=== PATIENT | female | born 1945 | race African-American/Black ===

== ENCOUNTER 2016-09-08 06:45 | Inpatient (IN) | payer MEDICARE, MEDICAID ==
[~2016-09-08] VITALS: Ht 152.4 cm; Wt 62.8 kg
[~2016-09-08 06:45] MED LIST: LEVO500T89 PO; LOSA50TA20 PO; MONT10TA24 PO; P20 PO; POTA20TA82 PO; THEO200T37 PO
[2016-09-08] MEDS ORDERED: ALBUTEROL (0.083%) 2.5MG/3ML NEB HHN STA ×2 (07:03→07:35)
[2016-09-08] MEDS ORDERED: METHYLPREDNISOLONE SOD SUCC 125 MG/2 ML VIAL IV STA (07:03)
[2016-09-08] MEDS ORDERED: IPRATROPIUM BROMIDE (0.02%) 0.5MG/2.5ML NEB HHN STA ×2 (07:03→07:35)
[2016-09-08] MEDS ORDERED: ACETAMINOPHEN 325MG TABLET PO ONE (07:15)
[2016-09-08] MEDS ORDERED: MAGNESIUM 2 G PREMIX 50 ML IV ONE (07:15)
[2016-09-08 07:59] LABS: BASOPHILS % 0.6 % (0.0-2.0); EOSINOPHILS % 0.3 % (0.0-5.0); HEMATOCRIT. 39.4 % (36.0-48.0); HEMOGLOBIN. 13.1 g/dL (12.0-16.0); LYMPHOCYTES % 11.5 % (20.0-50.0); MEAN CORPUSCULAR HEMOGLOBIN 29.4 pg (28.0-32.0); MEAN CORPUSCULAR VOLUME 88.6 fL (81.0-99.0); MONOCYTES % 4.8 % (2.0-8.0); NEUTROPHILS % 82.8 % (40.0-76.0); PLATELET 200 x1000/uL (130-400); RED BLOOD CELL COUNT 4.45 mill/uL (4.2-5.4); RED CELL DISTRIBUTION WIDTH 14.9 % (11.6-14.6)
[2016-09-08 08:04] LABS: INR 1.1; PROTHROMBIN TIME 10.9 sec
[2016-09-08 08:11] LABS: CARBON DIOXIDE 25 mEq/L (21-32); CHLORIDE 96 mEq/L (98-107)
[2016-09-08 08:46] LABS: CLARITY URINE CLOUDY (CLEAR); COLOR URINE YELLOW (YELLOW); GLUCOSE URINE 3+ (NEGATIVE); KETONES URINE 2+ (NEGATIVE); LEUKOCYTE ESTERASE URINE 1+ (NEGATIVE); NITRITE URINE POSITIVE (NEGATIVE); OCCULT BLOOD URINE 2+ (NEGATIVE); PH URINE 5.5 (4.5-8.0); PROTEIN URINE 2+ (NEGATIVE)
[2016-09-08] MEDS ORDERED: LEVOFLOXACIN 750MG PREMIX 150 ML IV ONE (09:00)
[2016-09-08 10:00] VITALS: BP 119/72
[2016-09-08] MEDS ORDERED: ACETAMINOPHEN 325MG TABLET PO PRN (10:45)
[2016-09-08 10:56] LABS: BG BASE EXCESS -2.5 mmol/L (-2.0-2.0); BG CARBOXYHEMOGLOBIN 0.5 % (0.5-1.5); BG DEOXYHEMOGLOBIN 4.2 % (0.0-5.0); BG FRACTION INSPIRED OXYGEN 28; BG HCO3 ACT 20.4 mmol/L (22.0-26.0); BG METHEMOGLOBIN 0.5 % (0.0-1.5); BG OXYGEN SATURATION 95.8 % (92.0-98.5); BG OXYHEMOGLOBIN 94.8 % (94.0-97.0); BG PCO2 30.3 mmHg (35.0-45.0); BG PH 7.447 (7.350-7.450); BG PO2 78.8 mmHg (75.0-100.0); BG SAMPLE SITE RIGHT BRACHIAL; BG TOTAL HEMOGLOBIN 13.8 g/dL (12.0-18.0); BG VENT MODE NASAL CANNULA
[2016-09-08] MEDS ORDERED: ALBUTEROL (0.083%) 2.5MG/3ML NEB HHN PRN (11:15)
[2016-09-08 12:00] VITALS: BP 109/62
[2016-09-08] MEDS ORDERED: ALBUTEROL (0.5%) 2.5MG/0.5ML NEB HHN SCH (12:00)
[2016-09-08] MEDS ORDERED: FOLIC ACID 1 MG, THIAMINE HCL 100 MG, MVI, ADULT NO.1 10 ML in DEXTROSE 5% WATER 1,000 ML IV ONE ×4 (12:00)
[2016-09-08] MEDS ORDERED: LEVOFLOXACIN 500MG PREMIX 100 ML IV SCH (12:00)
[2016-09-08] MEDS: IPRATROPIUM/ALBUTEROL 0.5-3(2.5)MG/3ML NEB HHN SCH ×3 (12:47→20:33)
[2016-09-08] MEDS: GABAPENTIN 400MG CAPSULE PO SCH ×2 (13:11→23:12)
[2016-09-08] MEDS: METFORMIN HCL 500MG TABLET PO SCH ×2 (13:12→18:47)
[2016-09-08] MEDS: CLOPIDOGREL 75MG TABLET PO SCH (13:12)
[2016-09-08] MEDS: METHYLPREDNISOLONE SOD SUCC 40 MG/ML VIAL IV SCH ×2 (13:12→21:16)
[2016-09-08] MEDS: NYSTATIN 100,000 UNITS/ML 5ML UDC SSW SCH ×3 (13:13→21:16)
[2016-09-08] MEDS ORDERED: DEXTROSE 50% WATER 50ML SYRINGE IV PRN (14:25)
[2016-09-08] MEDS: BLOOD SUGAR DIAGNOSTIC STRIP TEST SCH ×3 (15:02→21:00)
[2016-09-08] MEDS: INSULIN LISPRO 100 UNITS/ML SUBCUT SCH ×3 (15:11→21:00)
[2016-09-08] MEDS: PRIMIDONE 50MG TABLET PO SCH ×2 (15:12→21:16)
[2016-09-08 16:00] VITALS: BP 129/88
[2016-09-08 16:30] VITALS: BP 119/72
[2016-09-08] MEDS: MONTELUKAST SODIUM 10MG TABLET PO SCH (18:47)
[2016-09-08 20:00] VITALS: BP 118/78
[2016-09-08] MEDS: ATORVASTATIN CALCIUM 20MG TABLET PO SCH (21:16)
[2016-09-09] VITALS (7 sets, daily range): BP systolic 117–154; BP diastolic 64–81
[2016-09-09] MEDS: IPRATROPIUM/ALBUTEROL 0.5-3(2.5)MG/3ML NEB HHN SCH ×7 (00:18→23:20)
[2016-09-09] MEDS: METHYLPREDNISOLONE SOD SUCC 40 MG/ML VIAL IV SCH ×3 (06:04→21:06)
[2016-09-09] MEDS: GABAPENTIN 400MG CAPSULE PO SCH ×3 (06:04→21:06)
[2016-09-09] MEDS: BLOOD SUGAR DIAGNOSTIC STRIP TEST SCH ×4 (08:07→21:00)
[2016-09-09] MEDS: PRIMIDONE 50MG TABLET PO SCH ×2 (08:41→21:06)
[2016-09-09] MEDS: NYSTATIN 100,000 UNITS/ML 5ML UDC SSW SCH ×4 (08:41→21:06)
[2016-09-09] MEDS: CLOPIDOGREL 75MG TABLET PO SCH (08:41)
[2016-09-09] MEDS: METFORMIN HCL 500MG TABLET PO SCH ×2 (08:41→18:19)
[2016-09-09] MEDS: INSULIN LISPRO 100 UNITS/ML SUBCUT SCH ×4 (08:42→21:00)
[2016-09-09] MEDS: HYDROCODONE/ACETAMINOPHEN 5/325MG TABLET PO PRN ×2 (13:56→23:27)
[2016-09-09] MEDS: MONTELUKAST SODIUM 10MG TABLET PO SCH (18:19)
[2016-09-09] MEDS: ATORVASTATIN CALCIUM 20MG TABLET PO SCH (21:06)
[2016-09-10] MEDS: IPRATROPIUM/ALBUTEROL 0.5-3(2.5)MG/3ML NEB HHN SCH ×5 (03:19→21:05)
[2016-09-10 04:00] VITALS: BP 115/57
[2016-09-10] MEDS: METHYLPREDNISOLONE SOD SUCC 40 MG/ML VIAL IV SCH ×3 (05:46→20:39)
[2016-09-10] MEDS: GABAPENTIN 400MG CAPSULE PO SCH ×3 (05:46→20:39)
[2016-09-10] MEDS: BLOOD SUGAR DIAGNOSTIC STRIP TEST SCH ×4 (07:40→20:39)
[2016-09-10 08:00] VITALS: BP 146/82
[2016-09-10] MEDS: INSULIN LISPRO 100 UNITS/ML SUBCUT SCH ×4 (08:53→20:47)
[2016-09-10] MEDS: NYSTATIN 100,000 UNITS/ML 5ML UDC SSW SCH ×4 (08:53→20:38)
[2016-09-10] MEDS: PRIMIDONE 50MG TABLET PO SCH ×2 (08:54→20:39)
[2016-09-10] MEDS: METFORMIN HCL 500MG TABLET PO SCH ×2 (08:54→17:11)
[2016-09-10] MEDS: CLOPIDOGREL 75MG TABLET PO SCH (08:54)
[2016-09-10] MEDS: HYDROCODONE/ACETAMINOPHEN 5/325MG TABLET PO PRN ×2 (11:05→22:45)
[2016-09-10 11:40] VITALS: BP 123/72
[2016-09-10 16:00] VITALS: BP 130/73
[2016-09-10] MEDS: MONTELUKAST SODIUM 10MG TABLET PO SCH (17:11)
[2016-09-10 20:05] VITALS: BP 132/71
[2016-09-10] MEDS: ATORVASTATIN CALCIUM 20MG TABLET PO SCH (20:39)
[2016-09-11 00:06] VITALS: BP 124/77
[2016-09-11] MEDS: IPRATROPIUM/ALBUTEROL 0.5-3(2.5)MG/3ML NEB HHN SCH ×6 (00:37→21:48)
[2016-09-11 04:00] VITALS: BP 144/74
[2016-09-11] MEDS: METHYLPREDNISOLONE SOD SUCC 40 MG/ML VIAL IV SCH ×3 (05:45→21:40)
[2016-09-11] MEDS: GABAPENTIN 400MG CAPSULE PO SCH ×3 (05:46→21:40)
[2016-09-11] MEDS: BLOOD SUGAR DIAGNOSTIC STRIP TEST SCH ×4 (07:23→21:35)
[2016-09-11 08:00] VITALS: BP 109/63
[2016-09-11] MEDS: NYSTATIN 100,000 UNITS/ML 5ML UDC SSW SCH ×4 (08:49→21:40)
[2016-09-11] MEDS: INSULIN LISPRO 100 UNITS/ML SUBCUT SCH ×4 (08:51→21:00)
[2016-09-11] MEDS: CLOPIDOGREL 75MG TABLET PO SCH (08:52)
[2016-09-11] MEDS: PRIMIDONE 50MG TABLET PO SCH ×2 (08:52→21:40)
[2016-09-11] MEDS: METFORMIN HCL 500MG TABLET PO SCH ×2 (08:52→18:24)
[2016-09-11] MEDS: HYDROCODONE/ACETAMINOPHEN 5/325MG TABLET PO PRN ×2 (08:59→18:25)
[2016-09-11 12:00] VITALS: BP 109/68
[2016-09-11 16:00] VITALS: BP 108/60
[2016-09-11] MEDS ORDERED: LEVOFLOXACIN 500MG PREMIX 100 ML IV SCH (16:00)
[2016-09-11] MEDS: MONTELUKAST SODIUM 10MG TABLET PO SCH (16:36)
[2016-09-11 20:00] VITALS: BP 122/74
[2016-09-11] MEDS: ATORVASTATIN CALCIUM 20MG TABLET PO SCH (21:40)
[2016-09-12] VITALS: BP 116/64
[2016-09-12] MEDS: IPRATROPIUM/ALBUTEROL 0.5-3(2.5)MG/3ML NEB HHN SCH ×3 (01:41→10:03)
[2016-09-12 04:00] VITALS: BP_SYST 122; BP_SYST 148; BP_DIAS 74; BP_DIAS 78
[2016-09-12] MEDS: METHYLPREDNISOLONE SOD SUCC 40 MG/ML VIAL IV SCH (06:40)
[2016-09-12] MEDS: GABAPENTIN 400MG CAPSULE PO SCH (06:41)
[2016-09-12] MEDS: BLOOD SUGAR DIAGNOSTIC STRIP TEST SCH (07:22)
[2016-09-12 07:57] VITALS: BP 133/79
[2016-09-12] MEDS: METFORMIN HCL 500MG TABLET PO SCH (08:38)
[2016-09-12] MEDS: CLOPIDOGREL 75MG TABLET PO SCH (08:38)
[2016-09-12] MEDS: NYSTATIN 100,000 UNITS/ML 5ML UDC SSW SCH (08:38)
[2016-09-12] MEDS: PRIMIDONE 50MG TABLET PO SCH (08:39)
[2016-09-12] MEDS: HYDROCODONE/ACETAMINOPHEN 5/325MG TABLET PO PRN (08:39)
[2016-09-12] MEDS: INSULIN LISPRO 100 UNITS/ML SUBCUT SCH (08:40)
[2016-09-12 10:21] VITALS: BP 133/79
[2016-09-12] MEDS ORDERED: LEVOFLOXACIN 250MG PREMIX 50 ML IV SCH (11:00)
[2016-09-12 12:00] VITALS: BP 121/64
== END 2016-09-12 12:40 | disposition home or self-care (01) | DRG 871 ==
LOC: ER 07:42 → 7WST 09:00 → EDBEDREQSVC 09:06 → EDBEDREQ 09:06 → ENRESERV 09:16
PROVIDERS: ADMIT Specialist; ATTEND Specialist
PROC: 5A09457 Assistance with Respiratory Ventilation, 24-96 Consecutive Hours, Continuous Positive Airway Pressure (ICD-10-PCS; principal; 2016-09-09)
DX: A41.59 Other Gram-negative sepsis (principal); J96.20 Acute and chronic respiratory failure, unspecified whether with hypoxia or hypercapnia; J44.1 Chronic obstructive pulmonary disease with (acute) exacerbation; N39.0 Urinary tract infection, site not specified; J45.901 Unspecified asthma with (acute) exacerbation; E11.9 Type 2 diabetes mellitus without complications; E78.5 Hyperlipidemia, unspecified; M54.5 Low back pain; G89.29 Other chronic pain; G47.33 Obstructive sleep apnea (adult) (pediatric); M13.0 Polyarthritis, unspecified; I10 Essential (primary) hypertension; G25.0 Essential tremor; R33.9 Retention of urine, unspecified; Z88.6 Allergy status to analgesic agent; Z88.1 Allergy status to other antibiotic agents; Z88.0 Allergy status to penicillin; Z88.2 Allergy status to sulfonamides; Z88.8 Allergy status to other drugs, medicaments and biological substances; Z87.891 Personal history of nicotine dependence; Z86.73 Personal history of transient ischemic attack (TIA), and cerebral infarction without residual deficits
CPT/HCPCS: 36415; 36600; 71010; 80053; 81001; 82375; 82805; 82962; 83605; 85025; 85610; 87040; 87077; 87086; 87186; 93005; 94640; 94660; 96365; 96375; 99285; J1815; J1956; J2920; J2930; J3411; J3475; J3490; J7050; J7070; J7611; J7620

== ENCOUNTER 2017-07-09 11:11 | Emergency (ER) | payer MEDICARE, MEDICAID ==
[~2017-07-09] VITALS: Ht 152.4 cm; Wt 67.0 kg
[~2017-07-09 11:11] MED LIST changes: +THEO200T17 PO; -THEO200T37 PO
[2017-07-09 12:00] LABS: BASOPHILS % 0.5 % (0.0-2.0); EOSINOPHILS % 0.1 % (0.0-5.0); HEMATOCRIT. 40.8 % (36.0-48.0); HEMOGLOBIN. 13.7 g/dL (12.0-16.0); LYMPHOCYTES % 9.8 % (20.0-50.0); MEAN CORPUSCULAR HEMOGLOBIN 29.5 pg (28.0-32.0); MEAN CORPUSCULAR VOLUME 88.2 fL (81.0-99.0); MEAN PLATELET VOLUME 8.7 fl (7.4-10.4); MONOCYTES % 5.4 % (2.0-8.0); NEUTROPHILS % 84.2 % (40.0-76.0); PLATELET 264 x1000/uL (130-400); RED BLOOD CELL COUNT 4.62 mill/uL (4.2-5.4); RED CELL DISTRIBUTION WIDTH 15.2 % (11.6-14.6)
[2017-07-09 12:06] LABS: CHLORIDE 107 mEq/L (98-107)
[2017-07-09 12:08] LABS: PARTIAL THROMBOPLASTIN TIME 22.6 sec (23.4-31.0); PROTHROMBIN TIME 10.7 sec (9.4-11.6)
[2017-07-09] MEDS ORDERED: IPRATROPIUM BROMIDE (0.02%) 0.5MG/2.5ML NEB HHN STA (12:21)
[2017-07-09] MEDS: ALBUTEROL (0.083%) 2.5MG/3ML NEB HHN SCH ×3 (12:40→14:13)
[2017-07-09 15:58] VITALS: BP 145/65
== END 2017-07-09 16:23 | disposition home or self-care (01) ==
LOC: ER 15:50
DX: J44.1 Chronic obstructive pulmonary disease with (acute) exacerbation (principal); R07.89 Other chest pain; D72.829 Elevated white blood cell count, unspecified; I10 Essential (primary) hypertension; M19.90 Unspecified osteoarthritis, unspecified site; E11.9 Type 2 diabetes mellitus without complications; Z88.0 Allergy status to penicillin; Z88.2 Allergy status to sulfonamides; Z88.6 Allergy status to analgesic agent
CPT/HCPCS: 36415; 71045; 80053; 83690; 83880; 84484; 85025; 85610; 85730; 93005; 94640; 99285; J7611

== ENCOUNTER 2018-03-11 12:11 | Inpatient (IN) | payer MEDICARE, MEDICAID ==
[~2018-03-11] VITALS: Ht 160 cm; Wt 68.0 kg
[2018-03-11] MEDS ORDERED: ALBUTEROL (0.083%) 2.5MG/3ML NEB HHN ONE ×2 (13:00→15:30)
[2018-03-11] MEDS ORDERED: IPRATROPIUM BROMIDE (0.02%) 0.5MG/2.5ML NEB HHN ONE (13:00)
[2018-03-11] MEDS ORDERED: METHYLPREDNISOLONE SOD SUCC 125 MG/2 ML VIAL IV ONE (13:00)
[2018-03-11 13:44] LABS: BASOPHILS % 0.5 % (0.0-2.0); EOSINOPHILS % 0.1 % (0.0-5.0); HEMATOCRIT. 40.3 % (36.0-48.0); HEMOGLOBIN. 13.3 g/dL (12.0-16.0); LYMPHOCYTES % 14.2 % (20.0-50.0); MEAN CORPUSCULAR HEMOGLOBIN 30.1 pg (28.0-32.0); MEAN CORPUSCULAR VOLUME 91.2 fL (81.0-99.0); MEAN PLATELET VOLUME 8.8 fl (7.4-10.4); MONOCYTES % 2.7 % (2.0-8.0); NEUTROPHILS % 82.5 % (40.0-76.0); PLATELET 289 x1000/uL (130-400); RED BLOOD CELL COUNT 4.42 mill/uL (4.2-5.4); RED CELL DISTRIBUTION WIDTH 15.6 % (11.6-14.6)
[2018-03-11 13:50] LABS: CHLORIDE 106 mEq/L (98-107)
[2018-03-11] MEDS ORDERED: ALBUTEROL (0.5%) 2.5MG/0.5ML NEB HHN PRN ×2 (20:45→21:30)
[2018-03-11] MEDS ORDERED: AZITHROMYCIN 500 MG in DEXT 5% WATER 250 ML IV SCH (21:15)
[2018-03-11] MEDS ORDERED: DEXTROSE 50% WATER 50ML SYRINGE IV PRN (22:45)
[2018-03-11 23:36] VITALS: BP 151/54
[2018-03-12] VITALS (7 sets, daily range): BP systolic 121–165; BP diastolic 54–76
[2018-03-12] MEDS: ALBUTEROL (0.083%) 2.5MG/3ML NEB HHN SCH ×6 (04:35→23:30)
[2018-03-12] MEDS: METHYLPREDNISOLONE SOD SUCC 40 MG/ML VIAL IV SCH ×3 (04:58→21:55)
[2018-03-12] MEDS: AZITHROMYCIN 500 MG in DEXT 5% WATER 250 ML IV SCH (04:58)
[2018-03-12] MEDS: BLOOD SUGAR DIAGNOSTIC STRIP TEST SCH ×4 (06:01→21:55)
[2018-03-12] MEDS: ONDANSETRON HCL 4MG/2ML INJ IV PRN ×2 (06:43→13:26)
[2018-03-12] MEDS: HYDROCODONE/ACETAMINOPHEN 5/325MG TABLET PO PRN ×3 (06:44→21:55)
[2018-03-12] MEDS: INSULIN LISPRO 100 UNITS/ML SUBCUT SCH ×4 (08:10→21:00)
[2018-03-12] MEDS: BUDESONIDE 0.5MG/2ML NEB HHN SCH ×2 (08:41→20:38)
[2018-03-12] MEDS: CLOPIDOGREL 75MG TABLET PO SCH (08:50)
[2018-03-12] MEDS: METFORMIN HCL 500MG TABLET PO SCH ×2 (08:51→18:26)
[2018-03-12] MEDS: ENOXAPARIN 40MG/0.4ML SYR SUBCUT SCH (08:51)
[2018-03-12] MEDS ORDERED: FLUTICASONE FUROATE 200 1 INH/CAP ORI SCH (09:00)
[2018-03-12] MEDS: BENAZEPRIL 10MG TABLET PO SCH (11:00)
[2018-03-12] MEDS: ATORVASTATIN CALCIUM 10MG TABLET PO SCH (21:55)
[2018-03-13 00:09] VITALS: BP 112/47
[2018-03-13] MEDS: ALBUTEROL (0.083%) 2.5MG/3ML NEB HHN SCH ×5 (03:53→21:19)
[2018-03-13 04:00] VITALS: BP 134/77
[2018-03-13] MEDS: METHYLPREDNISOLONE SOD SUCC 40 MG/ML VIAL IV SCH ×3 (05:04→21:30)
[2018-03-13] MEDS: AZITHROMYCIN 500 MG in DEXT 5% WATER 250 ML IV SCH (05:04)
[2018-03-13] MEDS: BLOOD SUGAR DIAGNOSTIC STRIP TEST SCH ×4 (05:13→21:29)
[2018-03-13 08:00] VITALS: BP 143/51
[2018-03-13] MEDS: INSULIN LISPRO 100 UNITS/ML SUBCUT SCH ×4 (08:10→21:30)
[2018-03-13] MEDS: BUDESONIDE 0.5MG/2ML NEB HHN SCH ×2 (08:32→21:18)
[2018-03-13] MEDS: CLOPIDOGREL 75MG TABLET PO SCH (08:41)
[2018-03-13] MEDS: METFORMIN HCL 500MG TABLET PO SCH ×2 (08:41→17:40)
[2018-03-13] MEDS: ENOXAPARIN 40MG/0.4ML SYR SUBCUT SCH (08:41)
[2018-03-13] MEDS: BENAZEPRIL 10MG TABLET PO SCH (08:41)
[2018-03-13] MEDS: HYDROCODONE/ACETAMINOPHEN 5/325MG TABLET PO PRN ×2 (11:32→18:58)
[2018-03-13 12:00] VITALS: BP 126/52
[2018-03-13 16:00] VITALS: BP 109/56
[2018-03-13 20:00] VITALS: BP 125/37
[2018-03-13 20:47] LABS: BASOPHILS % 0.4 % (0.0-2.0); HEMOGLOBIN. 13.2 g/dL (12.0-16.0); LYMPHOCYTES % 12.2 % (20.0-50.0); MEAN CORPUSCULAR HEMOGLOBIN 29.2 pg (28.0-32.0); MEAN CORPUSCULAR VOLUME 90.7 fL (81.0-99.0); MEAN PLATELET VOLUME 8.7 fl (7.4-10.4); MONOCYTES % 5.4 % (2.0-8.0); PLATELET 306 x1000/uL (130-400); RED BLOOD CELL COUNT 4.52 mill/uL (4.2-5.4); RED CELL DISTRIBUTION WIDTH 15.2 % (11.6-14.6)
[2018-03-13 20:48] LABS: CHLORIDE 104 mEq/L (98-107)
[2018-03-13] MEDS: ATORVASTATIN CALCIUM 10MG TABLET PO SCH (21:29)
[2018-03-14] VITALS: BP 118/49
[2018-03-14] MEDS: ALBUTEROL (0.083%) 2.5MG/3ML NEB HHN SCH ×6 (00:48→20:55)
[2018-03-14] MEDS: HYDROCODONE/ACETAMINOPHEN 5/325MG TABLET PO PRN ×3 (01:13→20:15)
[2018-03-14 04:00] VITALS: BP 139/50
[2018-03-14] MEDS: METHYLPREDNISOLONE SOD SUCC 40 MG/ML VIAL IV SCH ×3 (05:59→21:28)
[2018-03-14] MEDS: AZITHROMYCIN 500 MG in DEXT 5% WATER 250 ML IV SCH (05:59)
[2018-03-14] MEDS: BLOOD SUGAR DIAGNOSTIC STRIP TEST SCH ×4 (07:40→20:16)
[2018-03-14 08:00] VITALS: BP 153/73
[2018-03-14] MEDS: INSULIN LISPRO 100 UNITS/ML SUBCUT SCH ×4 (08:10→20:16)
[2018-03-14] MEDS: METFORMIN HCL 500MG TABLET PO SCH ×2 (09:27→20:14)
[2018-03-14] MEDS: CLOPIDOGREL 75MG TABLET PO SCH (09:27)
[2018-03-14] MEDS: BENAZEPRIL 10MG TABLET PO SCH (09:28)
[2018-03-14] MEDS: ENOXAPARIN 40MG/0.4ML SYR SUBCUT SCH (09:28)
[2018-03-14] MEDS: BUDESONIDE 0.5MG/2ML NEB HHN SCH ×2 (09:30→17:10)
[2018-03-14 11:44] LABS: BG BASE EXCESS 2.1 mmol/L (-2.0-2.0); BG FRACTION INSPIRED OXYGEN 21; BG HCO3 ACT 26.3 mmol/L (22.0-26.0); BG METHEMOGLOBIN 0.3 % (0.0-1.5); BG OXYGEN SATURATION 91.9 % (92.0-98.5); BG OXYHEMOGLOBIN 90.7 % (94.0-97.0); BG PCO2 39.7 mmHg (35.0-45.0); BG PH 7.439 (7.350-7.450); BG PO2 61.8 mmHg (75.0-100.0); BG SAMPLE SITE RIGHT BRACHIAL; BG TOTAL HEMOGLOBIN 14.6 g/dL (12.0-18.0); BG VENT MODE ROOM AIR
[2018-03-14 12:00] VITALS: BP 138/79
[2018-03-14 12:26] LABS: BG SAMPLE SITE RIGHT RADIAL
[2018-03-14 12:27] LABS: BG VENT MODE NASAL CANNULA
[2018-03-14 12:28] LABS: BG FRACTION INSPIRED OXYGEN 28
[2018-03-14 12:34] LABS: BG PCO2 40.8 mmHg (35.0-45.0); BG PO2 98.7 mmHg (75.0-100.0)
[2018-03-14 12:35] LABS: BG BASE EXCESS 0.6 mmol/L (-2.0-2.0); BG CARBOXYHEMOGLOBIN 0.4 % (0.5-1.5); BG HCO3 ACT 25.3 mmol/L (22.0-26.0); BG METHEMOGLOBIN 0.4 % (0.0-1.5); BG OXYGEN SATURATION 97.3 % (92.0-98.5); BG OXYHEMOGLOBIN 96.5 % (94.0-97.0)
[2018-03-14 12:36] LABS: BG DEOXYHEMOGLOBIN 2.7 % (0.0-5.0)
[2018-03-14 16:00] VITALS: BP 136/56
[2018-03-14 20:00] VITALS: BP 130/60
[2018-03-14] MEDS: ATORVASTATIN CALCIUM 10MG TABLET PO SCH (20:14)
[2018-03-14] MEDS: THEOPHYLLINE ANHYDROUS 80 MG/15 ML 120ML PO SCH (21:28)
[2018-03-15] VITALS: BP 141/70
[2018-03-15] MEDS: ACETYLCYSTEINE 100MG/ML 10% VIAL 4ML INH SCH ×3 (00:55→16:01)
[2018-03-15] MEDS: ALBUTEROL (0.083%) 2.5MG/3ML NEB HHN SCH ×6 (00:55→21:23)
[2018-03-15 04:00] VITALS: BP 151/72
[2018-03-15] MEDS: THEOPHYLLINE ANHYDROUS 80 MG/15 ML 120ML PO SCH ×3 (05:44→21:45)
[2018-03-15] MEDS: METHYLPREDNISOLONE SOD SUCC 40 MG/ML VIAL IV SCH (05:44)
[2018-03-15] MEDS: AZITHROMYCIN 500 MG in DEXT 5% WATER 250 ML IV SCH (05:44)
[2018-03-15] MEDS: HYDROCODONE/ACETAMINOPHEN 5/325MG TABLET PO PRN ×3 (05:45→21:52)
[2018-03-15] MEDS: BLOOD SUGAR DIAGNOSTIC STRIP TEST SCH ×4 (07:12→21:44)
[2018-03-15 08:00] VITALS: BP 144/73
[2018-03-15] MEDS: INSULIN LISPRO 100 UNITS/ML SUBCUT SCH ×4 (08:10→21:00)
[2018-03-15] MEDS: BUDESONIDE 0.5MG/2ML NEB HHN SCH (08:14)
[2018-03-15] MEDS: CLOPIDOGREL 75MG TABLET PO SCH (09:13)
[2018-03-15] MEDS: BENAZEPRIL 10MG TABLET PO SCH (09:13)
[2018-03-15] MEDS: METFORMIN HCL 500MG TABLET PO SCH ×2 (09:13→18:55)
[2018-03-15] MEDS: ENOXAPARIN 40MG/0.4ML SYR SUBCUT SCH (09:15)
[2018-03-15 12:00] VITALS: BP 138/69
[2018-03-15 18:00] VITALS: BP 140/76
[2018-03-15 20:00] VITALS: BP 146/52
[2018-03-15] MEDS ORDERED: METHYLPREDNISOLONE SOD SUCC 40 MG/ML VIAL IV SCH (21:00)
[2018-03-15] MEDS: ATORVASTATIN CALCIUM 10MG TABLET PO SCH (21:51)
[2018-03-16] VITALS: BP 140/61
[2018-03-16] MEDS: ACETYLCYSTEINE 100MG/ML 10% VIAL 4ML INH SCH (00:48)
[2018-03-16] MEDS: ALBUTEROL (0.083%) 2.5MG/3ML NEB HHN SCH ×2 (00:50→04:21)
[2018-03-16 04:00] VITALS: BP 136/60
[2018-03-16] MEDS: AZITHROMYCIN 500 MG in DEXT 5% WATER 250 ML IV SCH (05:04)
[2018-03-16] MEDS: THEOPHYLLINE ANHYDROUS 80 MG/15 ML 120ML PO SCH (05:05)
[2018-03-16] MEDS: BLOOD SUGAR DIAGNOSTIC STRIP TEST SCH (06:52)
[2018-03-16 08:00] VITALS: BP 149/63
[2018-03-16] MEDS: METFORMIN HCL 500MG TABLET PO SCH (08:38)
[2018-03-16] MEDS: CLOPIDOGREL 75MG TABLET PO SCH (08:38)
[2018-03-16] MEDS: BENAZEPRIL 10MG TABLET PO SCH (08:38)
[2018-03-16] MEDS: HYDROCODONE/ACETAMINOPHEN 5/325MG TABLET PO PRN (08:39)
[2018-03-16] MEDS: INSULIN LISPRO 100 UNITS/ML SUBCUT SCH (08:40)
[2018-03-16] MEDS: ENOXAPARIN 40MG/0.4ML SYR SUBCUT SCH (08:42)
[2018-03-16] MEDS ORDERED: PREDNISONE 20MG TABLET PO SCH (09:00)
[2018-03-16 12:00] VITALS: BP 143/60
[2018-03-16 13:15] VITALS: BP 143/60
== END 2018-03-16 13:40 | disposition home health service (06) | DRG 189 ==
LOC: ER 17:14 → 7WST 19:00 → ENRESERV 22:41
PROVIDERS: ADMIT Specialist; ATTEND Specialist
PROC: 5A09357 Assistance with Respiratory Ventilation, Less than 24 Consecutive Hours, Continuous Positive Airway Pressure (ICD-10-PCS; principal; 2018-03-11)
PROC: 5A09357 Assistance with Respiratory Ventilation, Less than 24 Consecutive Hours, Continuous Positive Airway Pressure (ICD-10-PCS; 2018-03-12)
PROC: 5A0945Z Assistance with Respiratory Ventilation, 24-96 Consecutive Hours (ICD-10-PCS; 2018-03-12)
DX: J96.20 Acute and chronic respiratory failure, unspecified whether with hypoxia or hypercapnia (principal); J44.1 Chronic obstructive pulmonary disease with (acute) exacerbation; J44.0 Chronic obstructive pulmonary disease with (acute) lower respiratory infection; G47.33 Obstructive sleep apnea (adult) (pediatric); M06.9 Rheumatoid arthritis, unspecified; E11.9 Type 2 diabetes mellitus without complications; I10 Essential (primary) hypertension; Z87.891 Personal history of nicotine dependence; J20.8 Acute bronchitis due to other specified organisms; M19.90 Unspecified osteoarthritis, unspecified site; Z79.899 Other long term (current) drug therapy; E78.5 Hyperlipidemia, unspecified; Z88.0 Allergy status to penicillin; Z88.2 Allergy status to sulfonamides; Z91.81 History of falling
CPT/HCPCS: 36415; 36600; 71045; 80048; 82375; 82805; 82962; 83880; 84484; 87070; 87804; 93005; 94644; 94660; 96374; 99291; C1893; J0456; J1650; J1815; J2405; J2920; J2930; J7050; J7060; J7512; J7608; J7611; J7626

== ENCOUNTER 2018-11-23 10:09 | Emergency (ER) | payer MEDICARE, MEDICAID ==
[~2018-11-23] VITALS: Ht 167.6 cm; Wt 73.0 kg
[~2018-11-23 10:09] MED LIST changes: -LOSA50TA20 PO; +LOSA50TA41 PO
[2018-11-23 11:02] LABS: *AMPHETAMINES SCREEN URINE NEGATIVE (NEGATIVE); *BARBITURATES SCREEN URINE NEGATIVE (NEGATIVE); *BENZODIAZEPINES SCREEN URINE NEGATIVE (NEGATIVE); *COCAINE SCREEN URINE NEGATIVE (NEGATIVE)
[2018-11-23 11:03] LABS: CANNABINOID URINE SCREEN PRESUMTIVE POSITIVE (NEGATIVE); METHADONE URINE SCREEN NEGATIVE (NEGATIVE); OPIATES URINE SCREEN PRESUMTIVE POSITIVE (NEGATIVE)
[2018-11-23 11:29] LABS: PHENCYCLIDINE URINE SCREEN NEGATIVE (NEGATIVE)
[2018-11-23 12:10] LABS: EOSINOPHILS % 0.4 % (0.0-5.0); HEMATOCRIT. 39.4 % (36.0-48.0); HEMOGLOBIN. 13.2 g/dL (12.0-16.0); LYMPHOCYTES % 22.1 % (20.0-50.0); MEAN CORPUSCULAR HEMOGLOBIN 29.7 pg (28.0-32.0); MEAN CORPUSCULAR VOLUME 88.8 fL (81.0-99.0); MEAN PLATELET VOLUME 8.6 fl (7.4-10.4); MONOCYTES % 12.4 % (2.0-8.0); NEUTROPHILS % 64.1 % (40.0-76.0); PLATELET 268 x1000/uL (130-400); RED BLOOD CELL COUNT 4.44 mill/uL (4.2-5.4); RED CELL DISTRIBUTION WIDTH 15.2 % (11.6-14.6)
[2018-11-23 12:17] LABS: CHLORIDE 106 mEq/L (98-107)
[2018-11-23 12:21] LABS: ETHANOL BLOOD < 10 mg/dL
[2018-11-23 14:38] VITALS: BP 139/75
[2018-11-23] MEDS ORDERED: ONDANSETRON 4MG ODT PO ONE (15:00)
== END 2018-11-23 15:45 | disposition home or self-care (01) ==
LOC: ER 12:42
DX: R55 Syncope and collapse (principal); F10.129 Alcohol abuse with intoxication, unspecified; F12.10 Cannabis abuse, uncomplicated; Y90.0 Blood alcohol level of less than 20 mg/100 ml; I10 Essential (primary) hypertension; E11.9 Type 2 diabetes mellitus without complications; J44.9 Chronic obstructive pulmonary disease, unspecified; Z86.73 Personal history of transient ischemic attack (TIA), and cerebral infarction without residual deficits
CPT/HCPCS: 36415; 70450; 71045; 80053; 80305; 80320; 83880; 84484; 85025; 93005; 99284; Q0162; G0480

== ENCOUNTER 2019-03-17 09:44 | Inpatient (IN) | payer MEDICARE, MEDICAID ==
[~2019-03-17] VITALS: Ht 152.4 cm; Wt 57.6 kg
[2019-03-17] MEDS ORDERED: METHYLPREDNISOLONE SOD SUCC 125 MG/2 ML VIAL IV STA (10:00)
[2019-03-17] MEDS ORDERED: ALBUTEROL (0.083%) 2.5MG/3ML NEB HHN STA (10:00)
[2019-03-17] MEDS ORDERED: IPRATROPIUM BROMIDE (0.02%) 0.5MG/2.5ML NEB HHN STA (10:00)
[2019-03-17 10:19] LABS: BASOPHILS % 0.4 % (0.0-2.0); EOSINOPHILS % 0.1 % (0.0-5.0); HEMATOCRIT. 46.8 % (36.0-48.0); HEMOGLOBIN. 15.4 g/dL (12.0-16.0); LYMPHOCYTES % 13.9 % (20.0-50.0); MEAN CORPUSCULAR HEMOGLOBIN 29.6 pg (28.0-32.0); MEAN CORPUSCULAR VOLUME 89.8 fL (81.0-99.0); MEAN PLATELET VOLUME 8.2 fl (7.4-10.4); MONOCYTES % 7.9 % (2.0-8.0); NEUTROPHILS % 77.7 % (40.0-76.0); PLATELET 247 x1000/uL (130-400); RED BLOOD CELL COUNT 5.21 mill/uL (4.2-5.4); RED CELL DISTRIBUTION WIDTH 16.3 % (11.6-14.6)
[2019-03-17 10:23] LABS: CHLORIDE 103 mEq/L (98-107)
[2019-03-17] MEDS ORDERED: DIPHENHYDRAMINE 50MG/ML VIAL IV PRN (17:00)
[2019-03-17] MEDS ORDERED: DOCUSATE SODIUM 100MG CAPSULE PO PRN (17:00)
[2019-03-17 17:28] VITALS: BP 147/80
[2019-03-17 18:00] VITALS: BP 143/68
[2019-03-17 18:02] LABS: BG BILEVEL POS AIRWAY PRESSURE 15/5; BG CARBOXYHEMOGLOBIN 0.4 % (0.5-1.5); BG DEOXYHEMOGLOBIN 1.2 % (0.0-5.0); BG FRACTION INSPIRED OXYGEN 35; BG HCO3 ACT 22.4 mmol/L (22.0-26.0); BG METHEMOGLOBIN 0.3 % (0.0-1.5); BG OXYGEN SATURATION 98.8 % (92.0-98.5); BG OXYHEMOGLOBIN 98.1 % (94.0-97.0); BG PCO2 37.3 mmHg (35.0-45.0); BG PH 7.397 (7.350-7.450); BG PO2 153.4 mmHg (75.0-100.0); BG SAMPLE SITE RIGHT BRACHIAL; BG TOTAL HEMOGLOBIN 14.6 g/dL (12.0-18.0); BG VENT MODE MASK - BIPAP
[2019-03-17] MEDS: METFORMIN HCL 500MG TABLET PO SCH (18:55)
[2019-03-17] MEDS ORDERED: DEXTROSE 50% WATER 50ML SYRINGE IV PRN (19:00)
[2019-03-17 20:00] VITALS: BP 135/71
[2019-03-17] MEDS ORDERED: AZITHROMYCIN 500 MG in DEXT 5% WATER 250 ML IV SCH (20:00)
[2019-03-17] MEDS: INSULIN LISPRO 100 UNITS/ML SUBCUT SCH (20:41)
[2019-03-17] MEDS: ENOXAPARIN 40MG/0.4ML SYR SUBCUT SCH (20:41)
[2019-03-17] MEDS: BLOOD SUGAR DIAGNOSTIC STRIP TEST SCH (20:42)
[2019-03-17] MEDS: METHYLPREDNISOLONE SOD SUCC 40 MG/ML VIAL IV SCH (21:16)
[2019-03-17] MEDS: IPRATROPIUM/ALBUTEROL 0.5-3(2.5)MG/3ML NEB HHN SCH (21:18)
[2019-03-17] MEDS: ACETAMINOPHEN 650MG/20.3ML UDC GT PRN (21:20)
[2019-03-17 22:00] VITALS: BP 154/67
[2019-03-17] MEDS: MAGNESIUM/ALUMINUM HYDROXIDE/SIMETHICONE 30ML UDC PO PRN (23:14)
[2019-03-17] MEDS: PANTOPRAZOLE 40MG DR TABLET PO SCH (23:14)
[2019-03-17] MEDS: ONDANSETRON HCL 4MG/2ML INJ IV PRN (23:14)
[2019-03-18] VITALS (12 sets, daily range): BP systolic 107–162; BP diastolic 56–86
[2019-03-18] MEDS: IPRATROPIUM/ALBUTEROL 0.5-3(2.5)MG/3ML NEB HHN SCH ×6 (01:03→21:37)
[2019-03-18] MEDS: METHYLPREDNISOLONE SOD SUCC 40 MG/ML VIAL IV SCH ×3 (05:31→21:13)
[2019-03-18] MEDS: BLOOD SUGAR DIAGNOSTIC STRIP TEST SCH ×4 (07:30→21:13)
[2019-03-18 08:09] LABS: BG BASE EXCESS 0.8 mmol/L (-2.0-2.0); BG BILEVEL POS AIRWAY PRESSURE 15/5; BG CARBOXYHEMOGLOBIN 0.6 % (0.5-1.5); BG DEOXYHEMOGLOBIN 0.8 % (0.0-5.0); BG FRACTION INSPIRED OXYGEN 35; BG HCO3 ACT 24.9 mmol/L (22.0-26.0); BG METHEMOGLOBIN 0.3 % (0.0-1.5); BG OXYGEN SATURATION 99.2 % (92.0-98.5); BG OXYHEMOGLOBIN 98.3 % (94.0-97.0); BG PCO2 38.5 mmHg (35.0-45.0); BG PH 7.429 (7.350-7.450); BG PO2 178.6 mmHg (75.0-100.0); BG SAMPLE SITE RIGHT BRACHIAL; BG TOTAL HEMOGLOBIN 14.5 g/dL (12.0-18.0); BG VENT MODE MASK - BIPAP; BG VENT RATE 14 set
[2019-03-18] MEDS: METFORMIN HCL 500MG TABLET PO SCH ×2 (09:35→18:22)
[2019-03-18] MEDS: INSULIN LISPRO 100 UNITS/ML SUBCUT SCH ×4 (09:35→21:14)
[2019-03-18] MEDS: CLOPIDOGREL 75MG TABLET PO SCH (09:35)
[2019-03-18] MEDS: PANTOPRAZOLE 40MG DR TABLET PO SCH ×2 (09:36→20:27)
[2019-03-18 10:18] LABS: CHLORIDE 104 mEq/L (98-107)
[2019-03-18] MEDS: SODIUM CHLORIDE 0.45% 1,000 ML IV SCH ×2 (10:54→21:13)
[2019-03-18] MEDS: ACETAMINOPHEN 650MG/20.3ML UDC GT PRN ×2 (15:48→21:13)
[2019-03-18 19:07] LABS: AMYLASE 451 IU/L (25-115)
[2019-03-18] MEDS: ENOXAPARIN 40MG/0.4ML SYR SUBCUT SCH (20:27)
[2019-03-18] MEDS: AZITHROMYCIN 500MG in DEXTROSE 5% WATER 250ML IV SCH (23:41)
[2019-03-19] VITALS (9 sets, daily range): BP systolic 116–167; BP diastolic 50–99
[2019-03-19] MEDS: IPRATROPIUM/ALBUTEROL 0.5-3(2.5)MG/3ML NEB HHN SCH ×6 (01:28→21:51)
[2019-03-19] MEDS: METHYLPREDNISOLONE SOD SUCC 40 MG/ML VIAL IV SCH ×3 (06:11→21:15)
[2019-03-19] MEDS: ACETAMINOPHEN 650MG/20.3ML UDC GT PRN (06:18)
[2019-03-19] MEDS: BLOOD SUGAR DIAGNOSTIC STRIP TEST SCH ×4 (07:30→21:01)
[2019-03-19] MEDS ORDERED: FAMOTIDINE 20MG TABLET PO SCH (09:00)
[2019-03-19] MEDS: SODIUM CHLORIDE 0.45% 1,000 ML IV SCH ×2 (09:00→13:01)
[2019-03-19] MEDS: CLOPIDOGREL 75MG TABLET PO SCH (09:24)
[2019-03-19] MEDS: METFORMIN HCL 500MG TABLET PO SCH ×2 (09:24→17:40)
[2019-03-19] MEDS: INSULIN LISPRO 100 UNITS/ML SUBCUT SCH ×4 (09:25→21:00)
[2019-03-19 09:52] LABS: BG BASE EXCESS -1.9 mmol/L (-2.0-2.0); BG CARBOXYHEMOGLOBIN 0.2 % (0.5-1.5); BG DEOXYHEMOGLOBIN 1.2 % (0.0-5.0); BG FRACTION INSPIRED OXYGEN 35; BG HCO3 ACT 22.2 mmol/L (22.0-26.0); BG OXYGEN SATURATION 98.8 % (92.0-98.5); BG OXYHEMOGLOBIN 98.6 % (94.0-97.0); BG PCO2 36.1 mmHg (35.0-45.0); BG PH 7.407 (7.350-7.450); BG PO2 159.8 mmHg (75.0-100.0); BG SAMPLE SITE RIGHT RADIAL; BG TOTAL HEMOGLOBIN 13.4 g/dL (12.0-18.0); BG VENT MODE MASK - BIPAP; BG VENT RATE 14 set
[2019-03-19] MEDS ORDERED: VITAMINS A AND D OINT TUBE TOP PRN (12:00)
[2019-03-19] MEDS: LOPERAMIDE HCL 2MG CAPSULE PO PRN ×2 (12:27→21:15)
[2019-03-19] MEDS: HYDROCODONE/ACETAMINOPHEN 5/325MG TABLET PO PRN ×2 (12:28→21:15)
[2019-03-19 12:40] LABS: BG BASE EXCESS 0.9 mmol/L (-2.0-2.0); BG CARBOXYHEMOGLOBIN 0.3 % (0.5-1.5); BG DEOXYHEMOGLOBIN 1.5 % (0.0-5.0); BG FRACTION INSPIRED OXYGEN 35; BG HCO3 ACT 24.3 mmol/L (22.0-26.0); BG METHEMOGLOBIN 0.1 % (0.0-1.5); BG OXYGEN SATURATION 98.5 % (92.0-98.5); BG OXYHEMOGLOBIN 98.1 % (94.0-97.0); BG PCO2 34.9 mmHg (35.0-45.0); BG PH 7.461 (7.350-7.450); BG SAMPLE SITE RIGHT RADIAL; BG TOTAL HEMOGLOBIN 13.4 g/dL (12.0-18.0); BG VENT MODE MASK - BIPAP; BG VENT RATE 14 set
[2019-03-19] MEDS ORDERED: BUDE0.25 NEB (12:45)
[2019-03-19] MEDS ORDERED: FLUT1DIS2 INH (12:45)
[2019-03-19] MEDS ORDERED: FORM20VI IH (12:45)
[2019-03-19] MEDS ORDERED: REVE175V IH (12:45)
[2019-03-19] MEDS ORDERED: INSU100I13 SQ (12:45)
[2019-03-19] MEDS ORDERED: CLOP75TA33 PO (12:45)
[2019-03-19] MEDS ORDERED: ATROV IH (12:45)
[2019-03-19] MEDS ORDERED: ROFL500T PO (12:45)
[2019-03-19] MEDS ORDERED: GABA800T97 MT (12:45)
[2019-03-19] MEDS ORDERED: ALBU90AE2 (12:45)
[2019-03-19] MEDS ORDERED: METF-815 PO (12:45)
[2019-03-19 16:51] LABS: BASOPHILS % 0.1 % (0.0-2.0); HEMATOCRIT. 42.5 % (36.0-48.0); HEMOGLOBIN. 14.2 g/dL (12.0-16.0); LYMPHOCYTES % 7.1 % (20.0-50.0); MEAN CORPUSCULAR HEMOGLOBIN 29.8 pg (28.0-32.0); MEAN CORPUSCULAR VOLUME 89.2 fL (81.0-99.0); MEAN PLATELET VOLUME 8.7 fl (7.4-10.4); NEUTROPHILS % 86.8 % (40.0-76.0); PLATELET 236 x1000/uL (130-400); RED BLOOD CELL COUNT 4.76 mill/uL (4.2-5.4)
[2019-03-19 17:12] LABS: CHLORIDE 103 mEq/L (98-107)
[2019-03-19] MEDS: ENOXAPARIN 40MG/0.4ML SYR SUBCUT SCH (21:15)
[2019-03-19] MEDS: AZITHROMYCIN 500MG in DEXTROSE 5% WATER 250ML IV SCH (21:16)
[2019-03-19] MEDS: PANTOPRAZOLE SODIUM 40 MG/VIAL IV SCH (21:27)
[2019-03-20] VITALS: BP 127/59
[2019-03-20] MEDS: SODIUM CHLORIDE 0.45% 1,000 ML IV SCH ×2 (00:42→11:45)
[2019-03-20] MEDS: IPRATROPIUM/ALBUTEROL 0.5-3(2.5)MG/3ML NEB HHN SCH ×6 (01:19→20:07)
[2019-03-20 04:00] VITALS: BP 126/58
[2019-03-20] MEDS: INSULIN LISPRO 100 UNITS/ML SUBCUT SCH ×4 (05:59→20:28)
[2019-03-20] MEDS: BLOOD SUGAR DIAGNOSTIC STRIP TEST SCH ×4 (06:00→20:05)
[2019-03-20] MEDS: METHYLPREDNISOLONE SOD SUCC 40 MG/ML VIAL IV SCH ×3 (06:15→21:06)
[2019-03-20] MEDS: METFORMIN HCL 500MG TABLET PO SCH ×2 (06:15→17:06)
[2019-03-20 06:50] LABS: BASOPHILS % 0.2 % (0.0-2.0); HEMATOCRIT. 38.7 % (36.0-48.0); HEMOGLOBIN. 12.9 g/dL (12.0-16.0); LYMPHOCYTES % 9.3 % (20.0-50.0); MEAN CORPUSCULAR HEMOGLOBIN 29.4 pg (28.0-32.0); MEAN CORPUSCULAR VOLUME 88.3 fL (81.0-99.0); MEAN PLATELET VOLUME 8.3 fl (7.4-10.4); MONOCYTES % 6.1 % (2.0-8.0); NEUTROPHILS % 84.4 % (40.0-76.0); PLATELET 227 x1000/uL (130-400); RED BLOOD CELL COUNT 4.38 mill/uL (4.2-5.4); RED CELL DISTRIBUTION WIDTH 15.7 % (11.6-14.6)
[2019-03-20 07:27] LABS: CHLORIDE 107 mEq/L (98-107)
[2019-03-20 08:00] VITALS: BP 154/69
[2019-03-20] MEDS: PANTOPRAZOLE SODIUM 40 MG/VIAL IV SCH ×2 (08:23→20:15)
[2019-03-20] MEDS: CLOPIDOGREL 75MG TABLET PO SCH (08:23)
[2019-03-20] MEDS ORDERED: PANTOPRAZOLE SODIUM 40 MG/VIAL IV SCH (09:00)
[2019-03-20 11:12] LABS: CLARITY URINE CLOUDY (CLEAR); COLOR URINE YELLOW (YELLOW); KETONES URINE NEGATIVE (NEGATIVE); LEUKOCYTE ESTERASE URINE 2+ (NEGATIVE); NITRITE URINE NEGATIVE (NEGATIVE); OCCULT BLOOD URINE NEGATIVE (NEGATIVE); PROTEIN URINE 1+ (NEGATIVE); SPECIFIC GRAVITY URINE 1.026 (1.005-1.030); UROBILINOGEN URINE 0.2 E.U./dL (0.2-1.0)
[2019-03-20 12:00] VITALS: BP 124/67
[2019-03-20] MEDS: LEVOFLOXACIN 500MG PREMIX 100 ML IV SCH (14:01)
[2019-03-20 16:00] VITALS: BP 115/47
[2019-03-20] MEDS: HYDROCODONE/ACETAMINOPHEN 5/325MG TABLET PO PRN (17:21)
[2019-03-20 20:00] VITALS: BP 124/52
[2019-03-20] MEDS: ENOXAPARIN 40MG/0.4ML SYR SUBCUT SCH (20:15)
[2019-03-20] MEDS: AZITHROMYCIN 500MG in DEXTROSE 5% WATER 250ML IV SCH (21:06)
[2019-03-20] MEDS: GUAIFENESIN 200MG/10ML SUGAR FREE UDC PO PRN (21:15)
[2019-03-21] VITALS: BP 126/62
[2019-03-21] MEDS: IPRATROPIUM/ALBUTEROL 0.5-3(2.5)MG/3ML NEB HHN SCH ×6 (00:19→21:03)
[2019-03-21 04:00] VITALS: BP 121/58
[2019-03-21] MEDS: SODIUM CHLORIDE 0.45% 1,000 ML IV SCH ×3 (05:46→18:05)
[2019-03-21] MEDS: METHYLPREDNISOLONE SOD SUCC 40 MG/ML VIAL IV SCH ×3 (05:46→21:29)
[2019-03-21] MEDS: BLOOD SUGAR DIAGNOSTIC STRIP TEST SCH ×4 (05:52→20:17)
[2019-03-21] MEDS: INSULIN LISPRO 100 UNITS/ML SUBCUT SCH ×4 (06:47→20:17)
[2019-03-21 08:00] VITALS: BP 148/67
[2019-03-21] MEDS: CLOPIDOGREL 75MG TABLET PO SCH (08:27)
[2019-03-21] MEDS: PANTOPRAZOLE SODIUM 40 MG/VIAL IV SCH ×2 (08:27→20:37)
[2019-03-21] MEDS: METFORMIN HCL 500MG TABLET PO SCH ×2 (08:27→18:04)
[2019-03-21] MEDS: LOPERAMIDE HCL 2MG CAPSULE PO PRN (10:41)
[2019-03-21 12:00] VITALS: BP 138/68
[2019-03-21] MEDS: LOPERAMIDE HCL 2MG CAPSULE PO SCH (12:15)
[2019-03-21] MEDS: FLUCONAZOLE 100MG TABLET PO SCH (14:10)
[2019-03-21] MEDS: GUAIFENESIN 200MG/10ML SUGAR FREE UDC PO PRN (14:10)
[2019-03-21] MEDS: LEVOFLOXACIN 500MG PREMIX 100 ML IV SCH (14:10)
[2019-03-21 16:00] VITALS: BP 121/52
[2019-03-21 20:00] VITALS: BP 138/53
[2019-03-21] MEDS: METOCLOPRAMIDE HCL 5MG TABLET PO SCH (20:37)
[2019-03-21] MEDS: ENOXAPARIN 40MG/0.4ML SYR SUBCUT SCH (20:38)
[2019-03-21] MEDS: MAGNESIUM/ALUMINUM HYDROXIDE/SIMETHICONE 30ML UDC PO PRN (21:33)
[2019-03-22] VITALS: BP 126/52
[2019-03-22] MEDS: ONDANSETRON HCL 4MG/2ML INJ IV PRN (00:26)
[2019-03-22] MEDS: IPRATROPIUM/ALBUTEROL 0.5-3(2.5)MG/3ML NEB HHN SCH ×6 (00:56→21:49)
[2019-03-22] MEDS: METOCLOPRAMIDE HCL 5MG TABLET PO SCH ×2 (01:41→05:18)
[2019-03-22 04:00] VITALS: BP 120/45
[2019-03-22] MEDS: METHYLPREDNISOLONE SOD SUCC 40 MG/ML VIAL IV SCH ×3 (05:17→20:56)
[2019-03-22] MEDS: SODIUM CHLORIDE 0.45% 1,000 ML IV SCH ×3 (05:18→13:45)
[2019-03-22] MEDS: BLOOD SUGAR DIAGNOSTIC STRIP TEST SCH ×4 (05:51→20:12)
[2019-03-22] MEDS: INSULIN LISPRO 100 UNITS/ML SUBCUT SCH ×4 (06:48→20:46)
[2019-03-22 07:42] LABS: HEMATOCRIT. 37.3 % (36.0-48.0); HEMOGLOBIN. 12.4 g/dL (12.0-16.0); MEAN CORPUSCULAR HEMOGLOBIN 29.4 pg (28.0-32.0); MEAN CORPUSCULAR VOLUME 88.3 fL (81.0-99.0); MEAN PLATELET VOLUME 8.3 fl (7.4-10.4); PLATELET 213 x1000/uL (130-400); RED BLOOD CELL COUNT 4.22 mill/uL (4.2-5.4); RED CELL DISTRIBUTION WIDTH 15.9 % (11.6-14.6)
[2019-03-22 08:00] VITALS: BP 152/59
[2019-03-22 08:04] LABS: CHLORIDE 107 mEq/L (98-107)
[2019-03-22 08:08] LABS: AMYLASE 84 IU/L (25-115)
[2019-03-22] MEDS: PANTOPRAZOLE SODIUM 40 MG/VIAL IV SCH ×2 (09:56→20:12)
[2019-03-22] MEDS: METFORMIN HCL 500MG TABLET PO SCH ×2 (09:56→17:58)
[2019-03-22] MEDS: LOPERAMIDE HCL 2MG CAPSULE PO SCH (09:57)
[2019-03-22] MEDS: CLOPIDOGREL 75MG TABLET PO SCH (09:57)
[2019-03-22] MEDS: FLUCONAZOLE 100MG TABLET PO SCH (09:58)
[2019-03-22] MEDS: GUAIFENESIN 200MG/10ML SUGAR FREE UDC PO PRN (10:38)
[2019-03-22 13:00] VITALS: BP 143/61
[2019-03-22] MEDS: LEVOFLOXACIN 500MG PREMIX 100 ML IV SCH (13:53)
[2019-03-22] MEDS: HYDROCODONE/ACETAMINOPHEN 5/325MG TABLET PO PRN (15:01)
[2019-03-22 16:00] VITALS: BP 128/55
[2019-03-22 20:00] VITALS: BP 135/60
[2019-03-22] MEDS: MAGNESIUM/ALUMINUM HYDROXIDE/SIMETHICONE 30ML UDC PO PRN (20:11)
[2019-03-22] MEDS: ENOXAPARIN 40MG/0.4ML SYR SUBCUT SCH (20:12)
[2019-03-22 20:42] LABS: PLATELET ESTIMATE NORMAL
[2019-03-23] VITALS: BP 130/67
[2019-03-23] MEDS: IPRATROPIUM/ALBUTEROL 0.5-3(2.5)MG/3ML NEB HHN SCH ×6 (01:32→21:13)
[2019-03-23 04:00] VITALS: BP 135/63
[2019-03-23] MEDS: METHYLPREDNISOLONE SOD SUCC 40 MG/ML VIAL IV SCH ×2 (06:33→17:37)
[2019-03-23] MEDS: BLOOD SUGAR DIAGNOSTIC STRIP TEST SCH ×4 (06:33→21:00)
[2019-03-23] MEDS: INSULIN LISPRO 100 UNITS/ML SUBCUT SCH ×4 (07:07→22:00)
[2019-03-23 07:16] LABS: CHLORIDE 108 mEq/L (98-107)
[2019-03-23 07:20] LABS: AMYLASE 60 IU/L (25-115)
[2019-03-23 08:00] VITALS: BP 121/55
[2019-03-23] MEDS: FLUCONAZOLE 100MG TABLET PO SCH (08:22)
[2019-03-23] MEDS: METFORMIN HCL 500MG TABLET PO SCH ×2 (08:23→17:37)
[2019-03-23] MEDS: CLOPIDOGREL 75MG TABLET PO SCH (08:23)
[2019-03-23] MEDS: LOPERAMIDE HCL 2MG CAPSULE PO SCH (08:23)
[2019-03-23] MEDS: PANTOPRAZOLE SODIUM 40 MG/VIAL IV SCH ×2 (08:23→21:53)
[2019-03-23] MEDS: SODIUM CHLORIDE 0.45% 1,000 ML IV SCH (08:23)
[2019-03-23] MEDS: MAGNESIUM/ALUMINUM HYDROXIDE/SIMETHICONE 30ML UDC PO PRN ×2 (08:25→21:53)
[2019-03-23 12:00] VITALS: BP 115/53
[2019-03-23] MEDS: LEVOFLOXACIN 500MG PREMIX 100 ML IV SCH (14:05)
[2019-03-23] MEDS: GUAIFENESIN 200MG/10ML SUGAR FREE UDC PO PRN ×2 (14:13→21:53)
[2019-03-23 16:00] VITALS: BP 96/57
[2019-03-23 20:00] VITALS: BP 144/68
[2019-03-23] MEDS: HYDROCODONE/ACETAMINOPHEN 5/325MG TABLET PO PRN (21:53)
[2019-03-23] MEDS: ENOXAPARIN 40MG/0.4ML SYR SUBCUT SCH (21:54)
[2019-03-23] MEDS ORDERED: IOHEXOL-300 100 ML BOTTLE ONE (22:09)
[2019-03-24] VITALS: BP 134/67
[2019-03-24] MEDS: IPRATROPIUM/ALBUTEROL 0.5-3(2.5)MG/3ML NEB HHN SCH ×6 (01:04→20:44)
[2019-03-24 04:00] VITALS: BP 115/86
[2019-03-24] MEDS: SODIUM CHLORIDE 0.45% 1,000 ML IV SCH ×2 (05:15→17:38)
[2019-03-24] MEDS: METHYLPREDNISOLONE SOD SUCC 40 MG/ML VIAL IV SCH ×2 (06:45→17:36)
[2019-03-24] MEDS: BLOOD SUGAR DIAGNOSTIC STRIP TEST SCH ×4 (06:45→20:59)
[2019-03-24] MEDS: INSULIN LISPRO 100 UNITS/ML SUBCUT SCH ×4 (07:15→21:00)
[2019-03-24 08:09] LABS: CANCER ANTIGEN 125 25.8 U/mL (0.0-38.1)
[2019-03-24] MEDS: LOPERAMIDE HCL 2MG CAPSULE PO SCH (09:00)
[2019-03-24] MEDS: CLOPIDOGREL 75MG TABLET PO SCH (09:00)
[2019-03-24] MEDS: FLUCONAZOLE 100MG TABLET PO SCH (09:00)
[2019-03-24] MEDS: PANTOPRAZOLE SODIUM 40 MG/VIAL IV SCH ×2 (09:26→20:59)
[2019-03-24] MEDS ORDERED: BACTERIOSTATIC SODIUM CHLORIDE 0.9% 30ML VIAL IJ ONE (10:36)
[2019-03-24] MEDS: METOCLOPRAMIDE HCL 10MG/2ML VIAL IV SCH ×3 (10:48→23:30)
[2019-03-24] MEDS: LEVOFLOXACIN 500MG PREMIX 100 ML IV SCH (13:49)
[2019-03-24] MEDS ORDERED: SIMETHICONE 40 MG/0.6 ML 30ML ONE (14:51)
[2019-03-24] MEDS ORDERED: MIDAZOLAM HCL 5 MG/5 ML VIAL ONE (15:12)
[2019-03-24] MEDS ORDERED: FENTANYL CITRATE/PF 50MCG/ML 2ML VIAL ONE (15:12)
[2019-03-24] MEDS ORDERED: FENTANYL CITRATE/PF 50MCG/ML 2ML VIAL IV PRN (15:25)
[2019-03-24] MEDS ORDERED: MIDAZOLAM HCL 5 MG/5 ML VIAL IV PRN (15:26)
[2019-03-24] MEDS: METFORMIN HCL 500MG TABLET PO SCH (17:35)
[2019-03-24 20:00] VITALS: BP 120/52
[2019-03-24] MEDS: ENOXAPARIN 40MG/0.4ML SYR SUBCUT SCH (20:59)
[2019-03-24] MEDS: MAGNESIUM/ALUMINUM HYDROXIDE/SIMETHICONE 30ML UDC PO PRN (23:35)
[2019-03-25] VITALS: BP 116/55
[2019-03-25] MEDS: IPRATROPIUM/ALBUTEROL 0.5-3(2.5)MG/3ML NEB HHN SCH ×6 (00:30→21:00)
[2019-03-25 04:00] VITALS: BP 138/91
[2019-03-25] MEDS: GUAIFENESIN 200MG/10ML SUGAR FREE UDC PO PRN (04:11)
[2019-03-25] MEDS: METOCLOPRAMIDE HCL 10MG/2ML VIAL IV SCH ×4 (05:23→22:56)
[2019-03-25] MEDS: METHYLPREDNISOLONE SOD SUCC 40 MG/ML VIAL IV SCH ×2 (05:23→17:29)
[2019-03-25] MEDS: SODIUM CHLORIDE 0.45% 1,000 ML IV SCH ×3 (05:24→21:16)
[2019-03-25] MEDS: BLOOD SUGAR DIAGNOSTIC STRIP TEST SCH ×4 (06:02→21:00)
[2019-03-25] MEDS: INSULIN LISPRO 100 UNITS/ML SUBCUT SCH ×4 (06:02→21:26)
[2019-03-25 08:00] VITALS: BP 145/47
[2019-03-25] MEDS: METFORMIN HCL 500MG TABLET PO SCH ×2 (08:10→17:29)
[2019-03-25] MEDS: LOPERAMIDE HCL 2MG CAPSULE PO SCH (08:10)
[2019-03-25] MEDS: CLOPIDOGREL 75MG TABLET PO SCH (08:10)
[2019-03-25] MEDS: FLUCONAZOLE 100MG TABLET PO SCH (08:10)
[2019-03-25] MEDS: PANTOPRAZOLE SODIUM 40 MG/VIAL IV SCH ×2 (08:11→22:56)
[2019-03-25 12:00] VITALS: BP 148/59
[2019-03-25] MEDS: LEVOFLOXACIN 500MG PREMIX 100 ML IV SCH (14:08)
[2019-03-25 16:00] VITALS: BP 146/61
[2019-03-25] MEDS: AMLODIPINE 5MG TABLET PO SCH (17:32)
[2019-03-25 20:00] VITALS: BP 146/57
[2019-03-25] MEDS: MAGNESIUM/ALUMINUM HYDROXIDE/SIMETHICONE 30ML UDC PO PRN (21:24)
[2019-03-25] MEDS: ENOXAPARIN 40MG/0.4ML SYR SUBCUT SCH (21:25)
[2019-03-26 00:08] VITALS: BP 131/66
[2019-03-26] MEDS ORDERED: HYDROCODONE/ACETAMINOPHEN 5/325MG TABLET PO PRN (01:00)
[2019-03-26] MEDS: HYDROCODONE/ACETAMINOPHEN 5/325MG TABLET PO PRN (01:00)
[2019-03-26] MEDS: IPRATROPIUM/ALBUTEROL 0.5-3(2.5)MG/3ML NEB HHN SCH ×6 (01:09→20:03)
[2019-03-26 04:00] VITALS: BP 141/53
[2019-03-26] MEDS: METOCLOPRAMIDE HCL 10MG/2ML VIAL IV SCH ×3 (05:42→18:37)
[2019-03-26] MEDS: METHYLPREDNISOLONE SOD SUCC 40 MG/ML VIAL IV SCH (05:42)
[2019-03-26] MEDS: BLOOD SUGAR DIAGNOSTIC STRIP TEST SCH ×4 (06:15→21:23)
[2019-03-26] MEDS: INSULIN LISPRO 100 UNITS/ML SUBCUT SCH ×4 (06:19→21:00)
[2019-03-26 08:00] VITALS: BP 130/65
[2019-03-26] MEDS: CLOPIDOGREL 75MG TABLET PO SCH (09:15)
[2019-03-26] MEDS: PANTOPRAZOLE SODIUM 40 MG/VIAL IV SCH (09:15)
[2019-03-26] MEDS: SODIUM CHLORIDE 0.45% 1,000 ML IV SCH ×2 (09:15→18:37)
[2019-03-26] MEDS: FLUCONAZOLE 100MG TABLET PO SCH (09:16)
[2019-03-26] MEDS: LOPERAMIDE HCL 2MG CAPSULE PO SCH (09:16)
[2019-03-26] MEDS: AMLODIPINE 5MG TABLET PO SCH (09:16)
[2019-03-26] MEDS: METFORMIN HCL 500MG TABLET PO SCH ×2 (09:16→18:37)
[2019-03-26 12:00] VITALS: BP 130/68
[2019-03-26] MEDS ORDERED: LEVOFLOXACIN 500MG TABLET PO SCH (13:00)
[2019-03-26 13:21] LABS: BG BASE EXCESS 1.8 mmol/L (-2.0-2.0); BG CARBOXYHEMOGLOBIN 0.3 % (0.5-1.5); BG DEOXYHEMOGLOBIN 18.2 % (0.0-5.0); BG FRACTION INSPIRED OXYGEN 21; BG HCO3 ACT 25.7 mmol/L (22.0-26.0); BG METHEMOGLOBIN 0.3 % (0.0-1.5); BG OXYGEN SATURATION 81.7 % (92.0-98.5); BG OXYHEMOGLOBIN 81.2 % (94.0-97.0); BG PCO2 37.9 mmHg (35.0-45.0); BG PH 7.449 (7.350-7.450); BG PO2 41.8 mmHg (75.0-100.0); BG SAMPLE SITE RIGHT RADIAL; BG TOTAL HEMOGLOBIN 13.5 g/dL (12.0-18.0); BG VENT MODE ROOM AIR
[2019-03-26] MEDS: FAMOTIDINE 20MG TABLET PO SCH (13:21)
[2019-03-26] MEDS: GUAIFENESIN 200MG/10ML SUGAR FREE UDC PO PRN (15:10)
[2019-03-26 16:00] VITALS: BP 121/65
[2019-03-26 20:00] VITALS: BP 117/63
[2019-03-26] MEDS ORDERED: FAMOTIDINE 20MG TABLET PO SCH (21:00)
[2019-03-26] MEDS: ENOXAPARIN 40MG/0.4ML SYR SUBCUT SCH (21:24)
[2019-03-27] VITALS: BP 138/55
[2019-03-27] MEDS: METOCLOPRAMIDE HCL 10MG/2ML VIAL IV SCH ×2 (00:10→05:33)
[2019-03-27] MEDS: IPRATROPIUM/ALBUTEROL 0.5-3(2.5)MG/3ML NEB HHN SCH ×3 (00:11→09:10)
[2019-03-27] MEDS: SODIUM CHLORIDE 0.45% 1,000 ML IV SCH (03:29)
[2019-03-27 04:00] VITALS: BP 111/69
[2019-03-27] MEDS: MAGNESIUM/ALUMINUM HYDROXIDE/SIMETHICONE 30ML UDC PO PRN (05:33)
[2019-03-27] MEDS: INSULIN LISPRO 100 UNITS/ML SUBCUT SCH (06:43)
[2019-03-27] MEDS: BLOOD SUGAR DIAGNOSTIC STRIP TEST SCH (06:43)
[2019-03-27] MEDS: METFORMIN HCL 500MG TABLET PO SCH (06:47)
[2019-03-27] MEDS ORDERED: PREDNISONE 20MG TABLET PO SCH (07:15)
[2019-03-27 08:00] VITALS: BP 152/70
[2019-03-27] MEDS: LOPERAMIDE HCL 2MG CAPSULE PO SCH (08:44)
[2019-03-27] MEDS: AMLODIPINE 5MG TABLET PO SCH (08:44)
[2019-03-27] MEDS: FAMOTIDINE 20MG TABLET PO SCH (08:44)
[2019-03-27] MEDS: CLOPIDOGREL 75MG TABLET PO SCH (08:44)
[2019-03-27] MEDS: FLUCONAZOLE 100MG TABLET PO SCH (08:44)
[2019-03-27] MEDS ORDERED: PREDNISOLONE 15 MG/5 ML ORAL SYRINGE PO SCH (09:00)
[2019-03-27 09:06] VITALS: BP 142/75
[2019-03-27] MEDS ORDERED: LEVOFLOXACIN 250MG TABLET PO SCH (11:00)
[2019-03-27] MEDS ORDERED: LEVOFLOXACIN 500MG TABLET PO SCH (11:00)
== END 2019-03-27 09:50 | disposition home health service (06) | DRG 871 ==
LOC: ER 09:44 → 5EST 12:12 → ENRESERV 15:34 → 5WST 03-19 11:45
PROVIDERS: ADMIT Specialist; ATTEND Specialist
PROC: 5A09357 Assistance with Respiratory Ventilation, Less than 24 Consecutive Hours, Continuous Positive Airway Pressure (ICD-10-PCS; 2019-03-17)
PROC: 5A09457 Assistance with Respiratory Ventilation, 24-96 Consecutive Hours, Continuous Positive Airway Pressure (ICD-10-PCS; 2019-03-18)
PROC: 5A09357 Assistance with Respiratory Ventilation, Less than 24 Consecutive Hours, Continuous Positive Airway Pressure (ICD-10-PCS; 2019-03-20)
PROC: 5A09357 Assistance with Respiratory Ventilation, Less than 24 Consecutive Hours, Continuous Positive Airway Pressure (ICD-10-PCS; 2019-03-21)
PROC: 5A09357 Assistance with Respiratory Ventilation, Less than 24 Consecutive Hours, Continuous Positive Airway Pressure (ICD-10-PCS; 2019-03-22)
PROC: 0DB68ZX Excision of Stomach, Via Natural or Artificial Opening Endoscopic, Diagnostic (ICD-10-PCS; principal; 2019-03-24)
PROC: 5A09357 Assistance with Respiratory Ventilation, Less than 24 Consecutive Hours, Continuous Positive Airway Pressure (ICD-10-PCS; 2019-03-24)
PROC: 5A09357 Assistance with Respiratory Ventilation, Less than 24 Consecutive Hours, Continuous Positive Airway Pressure (ICD-10-PCS; 2019-03-25)
PROC: 5A09357 Assistance with Respiratory Ventilation, Less than 24 Consecutive Hours, Continuous Positive Airway Pressure (ICD-10-PCS; 2019-03-26)
PROC: 5A09357 Assistance with Respiratory Ventilation, Less than 24 Consecutive Hours, Continuous Positive Airway Pressure (ICD-10-PCS; 2019-03-27)
DX: A41.9 Sepsis, unspecified organism (principal); K85.90 Acute pancreatitis without necrosis or infection, unspecified; J96.21 Acute and chronic respiratory failure with hypoxia; J44.1 Chronic obstructive pulmonary disease with (acute) exacerbation; J45.901 Unspecified asthma with (acute) exacerbation; N39.0 Urinary tract infection, site not specified; J44.0 Chronic obstructive pulmonary disease with (acute) lower respiratory infection; E78.5 Hyperlipidemia, unspecified; J20.9 Acute bronchitis, unspecified; M05.10 Rheumatoid lung disease with rheumatoid arthritis of unspecified site; I11.9 Hypertensive heart disease without heart failure; E11.9 Type 2 diabetes mellitus without complications; D64.9 Anemia, unspecified; E78.00 Pure hypercholesterolemia, unspecified; I77.6 Arteritis, unspecified; K21.9 Gastro-esophageal reflux disease without esophagitis; K29.00 Acute gastritis without bleeding; M35.00 Sjogren syndrome, unspecified; T38.0X5A Adverse effect of glucocorticoids and synthetic analogues, initial encounter; Z79.02 Long term (current) use of antithrombotics/antiplatelets; Z79.4 Long term (current) use of insulin; Z79.51 Long term (current) use of inhaled steroids; Z79.52 Long term (current) use of systemic steroids; Z79.899 Other long term (current) drug therapy; Z98.1 Arthrodesis status; Z86.73 Personal history of transient ischemic attack (TIA), and cerebral infarction without residual deficits; Z82.5 Family history of asthma and other chronic lower respiratory diseases; Z83.3 Family history of diabetes mellitus; Z82.61 Family history of arthritis; Z83.2 Family history of diseases of the blood and blood-forming organs and certain disorders involving the immune mechanism; Z87.891 Personal history of nicotine dependence; Z88.6 Allergy status to analgesic agent; Z88.1 Allergy status to other antibiotic agents; Z88.0 Allergy status to penicillin; Z88.2 Allergy status to sulfonamides; Z88.8 Allergy status to other drugs, medicaments and biological substances; Y92.89 Other specified places as the place of occurrence of the external cause
CPT/HCPCS: 36415; 36600; 71045; 74018; 74178; 76700; 80048; 80053; 81003; 82150; 82375; 82378; 82805; 82962; 83880; 84478; 84484; 85025; 86301; 86304; 87015; 87045; 87077; 87106; 87186; 87427; 87449; 87804; 88305; 88312; 88313; 93005; 93306; 93970; 94640; 94660; 97162; 99291; A6261; C1893; C9113; J0456; J1650; J1815; J1956; J2250; J2405; J2765; J2920; J2930; J3010; J3490; J7040; J7060; J7512; J7620; J8597; Q9967

== ENCOUNTER → 2019-08-21 | Outpatient (CLI) | payer MEDICARE, MEDICAID ==
[~2019-08-21] MED LIST changes: +ALBU90AE2; +ATROV IH; +BUDE0.25 NEB; +CLOP75TA33 PO; +FORM20VI IH; +GABA800T97 MT; +INSU100I13 SQ; +METF-815 PO; -MONT10TA24 PO; +MONT10TA26 PO; +REVE175V IH; +ROFL500T PO; -THEO200T17 PO
== END | disposition home or self-care (01) ==
LOC: LAB 12:47
PROVIDERS: ATTEND Specialist
DX: Z01.818 Encounter for other preprocedural examination (principal); Z11.59 Encounter for screening for other viral diseases
CPT/HCPCS: 87635; C9803

== ENCOUNTER → 2019-08-25 | Outpatient (CLI) | payer MEDICARE, MEDICAID ==
[~2019-08-25] MED LIST changes: +ALBU6.7H11 IH; +ALBU6.7H9 IH; +ALBU90AE IH; +ALBUTEROL (0.083%) 2.5MG/3ML NEB ONE; +ASCO500T20 PO; +ATOR20TA65 PO; +CLOP75TA4 PO; +CYCL10TA7 PO; +DICL2.5D8 EACHEYE; +DOCU-150 PO; +EMPA25TA PO; +FAMO20TA8 PO; +FERR325T23 PO; +FERR325T6 PO; +FURO-152 PO; +MECL-159 PO; +METF-414 PO; +MOM PO; +OXYC-523 PO; +OXYC-89 PO; +PRED5TAB PO; +SENN-3 PO; +TOPUD PO
[2019-08-25 12:28] LABS: BG BASE EXCESS 2.2 mmol/L (-2.0-2.0); BG DEOXYHEMOGLOBIN 4.8 % (0.0-5.0); BG FRACTION INSPIRED OXYGEN 21; BG HCO3 ACT 26.9 mmol/L (22.0-26.0); BG METHEMOGLOBIN 0.2 % (0.0-1.5); BG OXYGEN SATURATION 95.1 % (92.0-98.5); BG PCO2 42.2 mmHg (35.0-45.0); BG PH 7.423 (7.350-7.450); BG SAMPLE SITE RIGHT RADIAL; BG TOTAL HEMOGLOBIN 14.6 g/dL (12.0-18.0); BG VENT MODE ROOM AIR
== END | disposition home or self-care (01) ==
LOC: PF 10:55
PROVIDERS: ATTEND Specialist
DX: Z01.818 Encounter for other preprocedural examination (principal); J43.9 Emphysema, unspecified
CPT/HCPCS: 36600; 82375; 82805; 94060; 94727; 94729

== ENCOUNTER → 2019-09-05 | Outpatient (CLI) | payer MEDICARE, MEDICAID ==
[~2019-09-05] MED LIST changes: -ALBU6.7H11 IH; -ALBU90AE IH; -ALBU90AE2; -ALBUTEROL (0.083%) 2.5MG/3ML NEB ONE; -ASCO500T20 PO; -ATROV IH; -CLOP75TA33 PO; -DOCU-150 PO; -FAMO20TA8 PO; -FERR325T23 PO; -GABA800T97 MT; -INSU100I13 SQ; -LEVO500T89 PO; -METF-815 PO; -MOM PO; -OXYC-523 PO; -P20 PO; -POTA20TA82 PO; -REVE175V IH; -SENN-3 PO; -TOPUD PO
== END | disposition home or self-care (01) ==
LOC: LAB 08:44
PROVIDERS: ATTEND Neurological Surgery
DX: Z01.818 Encounter for other preprocedural examination (principal); Z11.59 Encounter for screening for other viral diseases
CPT/HCPCS: C9803; U0003

== ENCOUNTER 2019-09-08 08:10 | Inpatient (IN) | payer MEDICARE, MEDICAID ==
[2019-09-08] VITALS (40 sets, daily range): BP systolic 101–156; BP diastolic 50–88
[~2019-09-08] VITALS: Ht 152.4 cm; Wt 59.0 kg
[2019-09-08] MEDS: DEXT 5%/LACTATED RINGERS 1,000 ML IV SCH ×2 (02:25→15:31)
[2019-09-08] MEDS ORDERED: THROMBIN (BOVINE) 5000 UNITS/VIAL TOP ONE ×3 (08:41→09:25)
[2019-09-08] MEDS ORDERED: LIDOCAINE HCL/EPINEPHRINE 1%-EPI 1:100,000 20 ML VIAL ONE ×2 (08:42→09:25)
[2019-09-08] MEDS ORDERED: BACITRACIN 50,000 UNITS/VIAL ONE ×2 (08:42→09:25)
[2019-09-08] MEDS ORDERED: NORMAL SALINE 0.9% 10 ML SYR ONE (08:43)
[2019-09-08] MEDS ORDERED: CLINDAMYCIN 900 MG PREMIX 50 ML IV ONE (10:12)
[2019-09-08] MEDS ORDERED: PROPOFOL 200MG/20ML VIAL IV ONE (10:12)
[2019-09-08] MEDS ORDERED: ROCURONIUM BROMIDE 10MG/ML VIAL 5ML IV ONE (10:12)
[2019-09-08] MEDS ORDERED: MIDAZOLAM HCL 2 MG/2 ML VIAL ONE (10:12)
[2019-09-08] MEDS ORDERED: NEOSTIGMINE METHYLSULFATE 1MG/ML 10 ML VIAL ONE (10:12)
[2019-09-08] MEDS ORDERED: FENTANYL CITRATE/PF 50MCG/ML 2ML VIAL ONE (10:12)
[2019-09-08] MEDS ORDERED: GLYCOPYRROLATE 0.2 MG/ML 2ML VIAL ONE (10:12)
[2019-09-08] MEDS ORDERED: ONDANSETRON HCL 4MG/2ML INJ ONE (10:16)
[2019-09-08] MEDS ORDERED: DEXAMETHASONE 4MG/ML 1ML VIAL ONE (10:16)
[2019-09-08] MEDS ORDERED: SODIUM CHLORIDE 0.9% 10ML VIAL ONE (12:03)
[2019-09-08] MEDS ORDERED: EPHEDRINE SULFATE 50MG/ML VIAL ONE (12:03)
[2019-09-08] MEDS ORDERED: LIDOCAINE HCL/PF 1% 10 MG/ML 5ML VIAL ONE (12:03)
[2019-09-08] MEDS ORDERED: HYDRALAZINE 20MG/ML VIAL ONE (12:03)
[2019-09-08] MEDS ORDERED: HYDROMORPHONE HCL/PF 2MG/ML (OR) ONE ×2 (12:18→12:19)
[2019-09-08] MEDS ORDERED: NICARDIPINE 100 MG in SODIUM CHLORIDE 0.9% 60 ML IV PRN (12:30)
[2019-09-08] MEDS ORDERED: HYDROMORPHONE PCA 10MG/50ML IV PRN (12:45)
[2019-09-08] MEDS ORDERED: DIPHENHYDRAMINE INJ IV PRN (12:45)
[2019-09-08] MEDS ORDERED: NALOXONE INJ IV PRN (12:45)
[2019-09-08] MEDS ORDERED: ONDANSETRON INJ IV PRN (12:45)
[2019-09-08] MEDS: MORPHINE SULFATE 4 MG/ML CPJ (NOT FOR IM USE) IV PRN ×4 (15:31→23:25)
[2019-09-08] MEDS: CLINDAMYCIN 300 MG in DEXTROSE 5% WATER 50 ML IV SCH ×2 (16:12→23:21)
[2019-09-08] MEDS ORDERED: IPRATROPIUM/ALBUTEROL 0.5-3(2.5)MG/3ML NEB HHN PRN (17:30)
[2019-09-08] MEDS ORDERED: METHYLPREDNISOLONE SOD SUCC 40 MG/ML VIAL IV SCH (20:00)
[2019-09-08] MEDS ORDERED: DEXTROSE 50% WATER 50ML SYRINGE IV PRN ×3 (20:00)
[2019-09-08] MEDS ORDERED: BLOOD SUGAR DIAGNOSTIC STRIP TEST SCH (21:00)
[2019-09-08] MEDS ORDERED: INSULIN LISPRO 100 UNITS/ML SUBCUT SCH (21:00)
[2019-09-08] MEDS: BLOOD SUGAR DIAGNOSTIC STRIP TEST SCH (23:16)
[2019-09-08] MEDS: INSULIN LISPRO 100 UNITS/ML SUBCUT SCH (23:20)
[2019-09-09] VITALS (86 sets, daily range): BP systolic 107–162; BP diastolic 49–94
[2019-09-09] MEDS: DEXT 5%/LACTATED RINGERS 1,000 ML IV SCH ×3 (02:45→23:24)
[2019-09-09] MEDS: MORPHINE SULFATE 4 MG/ML CPJ (NOT FOR IM USE) IV PRN ×6 (03:47→22:06)
[2019-09-09] MEDS: BLOOD SUGAR DIAGNOSTIC STRIP TEST SCH ×4 (05:48→23:24)
[2019-09-09] MEDS: INSULIN LISPRO 100 UNITS/ML SUBCUT SCH ×4 (05:48→23:31)
[2019-09-09 05:51] LABS: BASOPHILS % 0.3 % (0.0-2.0); HEMATOCRIT. 33.3 % (36.0-48.0); HEMOGLOBIN. 11.3 g/dL (12.0-16.0); LYMPHOCYTES % 9.2 % (20.0-50.0); MEAN CORPUSCULAR HEMOGLOBIN 29.8 pg (28.0-32.0); MEAN CORPUSCULAR VOLUME 88.1 fL (81.0-99.0); MEAN PLATELET VOLUME 7.9 fl (7.4-10.4); MONOCYTES % 7.5 % (2.0-8.0); PLATELET 244 x1000/uL (130-400); RED BLOOD CELL COUNT 3.78 mill/uL (4.2-5.4); RED CELL DISTRIBUTION WIDTH 16.9 % (11.6-14.6)
[2019-09-09 06:01] LABS: CHLORIDE 108 mEq/L (98-107)
[2019-09-09 06:06] LABS: PHOSPHORUS 3.8 mg/dL (2.5-4.9)
[2019-09-09] MEDS: BUDESONIDE 0.5MG/2ML NEB HHN SCH ×2 (08:00→21:10)
[2019-09-09] MEDS: PANTOPRAZOLE SODIUM 40 MG/VIAL IV SCH (09:26)
[2019-09-09] MEDS: CLINDAMYCIN 300 MG in DEXTROSE 5% WATER 50 ML IV SCH ×3 (09:30→23:24)
[2019-09-09 16:36] LABS: LDL CHOLESTEROL 42 mg/dL (5-100)
[2019-09-09 16:38] LABS: HDL CHOLESTEROL 115 mg/dL (40-59)
[2019-09-09 16:39] LABS: T4 FREE 1.99 ng/dL (0.76-1.46)
[2019-09-09 16:58] LABS: FOLIC ACID (FOLATE) SERUM >20 ng/mL ng/mL (>5.38)
[2019-09-09 17:09] LABS: VITAMIN B12 SERUM 446 pg/mL (211-911)
[2019-09-09] MEDS: LOSARTAN POTASSIUM 25 MG TABLET PO SCH (20:28)
[2019-09-09] MEDS: ATORVASTATIN CALCIUM 20MG TABLET PO SCH (20:28)
[2019-09-09] MEDS: METHYLPREDNISOLONE SOD SUCC 40 MG/ML VIAL IV SCH (20:28)
[2019-09-09] MEDS: AMLODIPINE 2.5MG TABLET PO SCH (20:28)
[2019-09-09] MEDS: IPRATROPIUM/ALBUTEROL 0.5-3(2.5)MG/3ML NEB HHN PRN (21:36)
[2019-09-10] VITALS (59 sets, daily range): BP systolic 95–159; BP diastolic 37–113
[2019-09-10] MEDS: MORPHINE SULFATE 4 MG/ML CPJ (NOT FOR IM USE) IV PRN ×6 (02:30→18:38)
[2019-09-10 05:48] LABS: CHLORIDE 103 mEq/L (98-107)
[2019-09-10 05:49] LABS: BASOPHILS % 0.4 % (0.0-2.0); HEMATOCRIT. 37.6 % (36.0-48.0); HEMOGLOBIN. 12.6 g/dL (12.0-16.0); LYMPHOCYTES % 8.9 % (20.0-50.0); MEAN CORPUSCULAR HEMOGLOBIN 29.6 pg (28.0-32.0); MEAN CORPUSCULAR VOLUME 88.4 fL (81.0-99.0); MONOCYTES % 7.1 % (2.0-8.0); NEUTROPHILS % 83.6 % (40.0-76.0); PLATELET 228 x1000/uL (130-400); RED BLOOD CELL COUNT 4.25 mill/uL (4.2-5.4)
[2019-09-10] MEDS: INSULIN LISPRO 100 UNITS/ML SUBCUT SCH ×4 (06:00→23:29)
[2019-09-10] MEDS: BLOOD SUGAR DIAGNOSTIC STRIP TEST SCH ×4 (06:08→23:29)
[2019-09-10] MEDS: AMLODIPINE 2.5MG TABLET PO SCH ×2 (08:09→20:39)
[2019-09-10] MEDS: PANTOPRAZOLE SODIUM 40 MG/VIAL IV SCH (08:09)
[2019-09-10] MEDS: LOSARTAN POTASSIUM 25 MG TABLET PO SCH ×2 (08:09→20:38)
[2019-09-10] MEDS: CLINDAMYCIN 300 MG in DEXTROSE 5% WATER 50 ML IV SCH ×2 (08:09→16:31)
[2019-09-10] MEDS: METHYLPREDNISOLONE SOD SUCC 40 MG/ML VIAL IV SCH ×2 (08:10→20:38)
[2019-09-10] MEDS: DEXT 5%/LACTATED RINGERS 1,000 ML IV SCH ×2 (08:10→16:31)
[2019-09-10] MEDS ORDERED: POTASSIUM CHLORIDE 20MEQ TABLET SR PO NR (10:45)
[2019-09-10] MEDS: OXYCODONE HCL/ACETAMINOPHEN 5/325MG TABLET PO PRN ×2 (11:08→20:50)
[2019-09-10] MEDS: ATORVASTATIN CALCIUM 20MG TABLET PO SCH (20:38)
[2019-09-10] MEDS: BUDESONIDE 0.5MG/2ML NEB HHN SCH (20:44)
[2019-09-11] VITALS: BP 116/53
[2019-09-11] MEDS: MORPHINE SULFATE 4 MG/ML CPJ (NOT FOR IM USE) IV PRN ×6 (00:11→18:42)
[2019-09-11] MEDS: DEXT 5%/LACTATED RINGERS 1,000 ML IV SCH ×2 (03:48→09:19)
[2019-09-11 04:00] VITALS: BP_SYST 106; BP_SYST 110; BP_DIAS 52; BP_DIAS 58
[2019-09-11] MEDS: OXYCODONE HCL/ACETAMINOPHEN 5/325MG TABLET PO PRN ×3 (05:03→20:54)
[2019-09-11] MEDS: BLOOD SUGAR DIAGNOSTIC STRIP TEST SCH ×3 (05:19→18:19)
[2019-09-11] MEDS: INSULIN LISPRO 100 UNITS/ML SUBCUT SCH ×3 (05:19→18:00)
[2019-09-11 06:20] LABS: CHLORIDE 103 mEq/L (98-107)
[2019-09-11 07:28] LABS: BASOPHILS % 0.2 % (0.0-2.0); HEMATOCRIT. 37.8 % (36.0-48.0); HEMOGLOBIN. 12.7 g/dL (12.0-16.0); LYMPHOCYTES % 9.3 % (20.0-50.0); MEAN CORPUSCULAR HEMOGLOBIN 29.7 pg (28.0-32.0); MEAN CORPUSCULAR VOLUME 88.2 fL (81.0-99.0); MONOCYTES % 5.6 % (2.0-8.0); NEUTROPHILS % 84.9 % (40.0-76.0); PLATELET 215 x1000/uL (130-400); RED BLOOD CELL COUNT 4.28 mill/uL (4.2-5.4); RED CELL DISTRIBUTION WIDTH 16.7 % (11.6-14.6)
[2019-09-11 08:00] VITALS: BP 107/57
[2019-09-11] MEDS: BUDESONIDE 0.5MG/2ML NEB HHN SCH ×2 (08:55→21:00)
[2019-09-11] MEDS: PANTOPRAZOLE SODIUM 40 MG/VIAL IV SCH (09:03)
[2019-09-11] MEDS: METHYLPREDNISOLONE SOD SUCC 40 MG/ML VIAL IV SCH ×2 (09:04→20:53)
[2019-09-11] MEDS: LOSARTAN POTASSIUM 25 MG TABLET PO SCH ×2 (09:04→20:54)
[2019-09-11] MEDS: AMLODIPINE 2.5MG TABLET PO SCH ×2 (09:04→20:54)
[2019-09-11] MEDS ORDERED: SENNOSIDES/DOCUSATE SOD 8.6/50MG TABLET PO PRN (12:15)
[2019-09-11] MEDS ORDERED: POLYETHYLENE GLYCOL 3350 (17GM) 1 DOSE PACK PO PRN (12:15)
[2019-09-11] MEDS ORDERED: DOCUSATE SODIUM 100MG CAPSULE PO PRN (12:15)
[2019-09-11] MEDS ORDERED: MAGNESIUM HYDROXIDE 400MG/5ML 30ML UDC PO PRN (12:15)
[2019-09-11] MEDS ORDERED: BISACODYL 10MG SUPP PR PRN (12:15)
[2019-09-11] MEDS: ONDANSETRON HCL 4MG/2ML INJ IV PRN (13:58)
[2019-09-11 16:00] VITALS: BP 124/61
[2019-09-11 20:00] VITALS: BP 117/54
[2019-09-11] MEDS: ATORVASTATIN CALCIUM 20MG TABLET PO SCH (20:54)
[2019-09-12] VITALS: BP 108/50
[2019-09-12] MEDS: BUDESONIDE 0.5MG/2ML NEB HHN SCH ×2 (00:24→08:52)
[2019-09-12] MEDS: INSULIN LISPRO 100 UNITS/ML SUBCUT SCH ×5 (00:42→23:34)
[2019-09-12] MEDS: BLOOD SUGAR DIAGNOSTIC STRIP TEST SCH ×5 (00:42→23:34)
[2019-09-12 04:00] VITALS: BP 106/55
[2019-09-12] MEDS: OXYCODONE HCL/ACETAMINOPHEN 5/325MG TABLET PO PRN ×4 (04:31→23:28)
[2019-09-12 07:23] LABS: BASOPHILS % 0.1 % (0.0-2.0); HEMATOCRIT. 37.8 % (36.0-48.0); HEMOGLOBIN. 12.4 g/dL (12.0-16.0); LYMPHOCYTES % 7.7 % (20.0-50.0); MEAN CORPUSCULAR HEMOGLOBIN 29.1 pg (28.0-32.0); MEAN PLATELET VOLUME 8.1 fl (7.4-10.4); MONOCYTES % 5.5 % (2.0-8.0); NEUTROPHILS % 86.7 % (40.0-76.0); PLATELET 197 x1000/uL (130-400); RED BLOOD CELL COUNT 4.25 mill/uL (4.2-5.4); RED CELL DISTRIBUTION WIDTH 16.6 % (11.6-14.6)
[2019-09-12 07:32] LABS: CHLORIDE 101 mEq/L (98-107)
[2019-09-12 08:00] VITALS: BP 110/47
[2019-09-12] MEDS: IPRATROPIUM/ALBUTEROL 0.5-3(2.5)MG/3ML NEB HHN PRN (08:52)
[2019-09-12] MEDS: AMLODIPINE 2.5MG TABLET PO SCH ×2 (09:00→21:16)
[2019-09-12] MEDS: LOSARTAN POTASSIUM 25 MG TABLET PO SCH ×2 (09:00→21:16)
[2019-09-12] MEDS: PREDNISONE 20MG TABLET PO SCH (09:29)
[2019-09-12] MEDS: FAMOTIDINE 20MG TABLET PO SCH (09:29)
[2019-09-12 12:00] VITALS: BP 109/53
[2019-09-12 16:00] VITALS: BP 121/58
[2019-09-12 20:00] VITALS: BP 114/43
[2019-09-12] MEDS: ATORVASTATIN CALCIUM 20MG TABLET PO SCH (21:16)
[2019-09-13] VITALS: BP 114/57
[2019-09-13 04:00] VITALS: BP 105/54
[2019-09-13] MEDS: INSULIN LISPRO 100 UNITS/ML SUBCUT SCH ×4 (06:00→23:59)
[2019-09-13] MEDS: OXYCODONE HCL/ACETAMINOPHEN 5/325MG TABLET PO PRN ×3 (06:01→20:36)
[2019-09-13] MEDS: BLOOD SUGAR DIAGNOSTIC STRIP TEST SCH ×4 (06:11→23:59)
[2019-09-13 08:00] VITALS: BP 119/61
[2019-09-13] MEDS: LOSARTAN POTASSIUM 25 MG TABLET PO SCH ×2 (09:19→20:36)
[2019-09-13] MEDS: AMLODIPINE 2.5MG TABLET PO SCH ×2 (09:19→20:36)
[2019-09-13] MEDS: FAMOTIDINE 20MG TABLET PO SCH (09:19)
[2019-09-13] MEDS: PREDNISONE 20MG TABLET PO SCH (09:19)
[2019-09-13] MEDS: MORPHINE SULFATE 4 MG/ML CPJ (NOT FOR IM USE) IV PRN (11:56)
[2019-09-13 12:00] VITALS: BP 131/57
[2019-09-13 16:00] VITALS: BP 123/53
[2019-09-13] MEDS ORDERED: IPRATROPIUM/ALBUTEROL 0.5-3(2.5)MG/3ML NEB HHN SCH (18:00)
[2019-09-13] MEDS ORDERED: BUDESONIDE 0.5MG/2ML NEB HHN SCH (18:00)
[2019-09-13 20:00] VITALS: BP 131/51
[2019-09-13] MEDS: ATORVASTATIN CALCIUM 20MG TABLET PO SCH (20:36)
[2019-09-14] VITALS: BP 119/44
[2019-09-14] MEDS: OXYCODONE HCL/ACETAMINOPHEN 5/325MG TABLET PO PRN ×4 (02:04→23:11)
[2019-09-14 04:00] VITALS: BP 113/56
[2019-09-14] MEDS: INSULIN LISPRO 100 UNITS/ML SUBCUT SCH ×4 (06:00→23:59)
[2019-09-14] MEDS: BLOOD SUGAR DIAGNOSTIC STRIP TEST SCH ×4 (06:00→23:59)
[2019-09-14 08:00] VITALS: BP 120/63
[2019-09-14] MEDS: FAMOTIDINE 20MG TABLET PO SCH (08:47)
[2019-09-14] MEDS: AMLODIPINE 2.5MG TABLET PO SCH ×2 (08:48→20:25)
[2019-09-14] MEDS: PREDNISONE 10MG TABLET PO SCH (08:48)
[2019-09-14] MEDS: LOSARTAN POTASSIUM 25 MG TABLET PO SCH ×2 (08:48→20:25)
[2019-09-14 12:00] VITALS: BP 145/59
[2019-09-14 16:00] VITALS: BP 118/59
[2019-09-14] MEDS: ONDANSETRON HCL 4MG/2ML INJ IV PRN (18:15)
[2019-09-14] MEDS ORDERED: ACETAMINOPHEN 500MG TABLET PO NR (19:30)
[2019-09-14 20:00] VITALS: BP 126/55
[2019-09-14] MEDS: ATORVASTATIN CALCIUM 20MG TABLET PO SCH (20:25)
[2019-09-15] VITALS: BP 117/57
[2019-09-15 04:00] VITALS: BP 120/65
[2019-09-15] MEDS: INSULIN LISPRO 100 UNITS/ML SUBCUT SCH ×2 (06:00→12:36)
[2019-09-15] MEDS: BLOOD SUGAR DIAGNOSTIC STRIP TEST SCH ×2 (06:37→11:48)
[2019-09-15 08:00] VITALS: BP 133/54
[2019-09-15] MEDS: LOSARTAN POTASSIUM 25 MG TABLET PO SCH (08:24)
[2019-09-15] MEDS: AMLODIPINE 2.5MG TABLET PO SCH (08:24)
[2019-09-15] MEDS: PREDNISONE 10MG TABLET PO SCH (08:24)
[2019-09-15] MEDS: OXYCODONE HCL/ACETAMINOPHEN 5/325MG TABLET PO PRN (08:26)
[2019-09-15] MEDS: FAMOTIDINE 20MG TABLET PO SCH (08:26)
[2019-09-15 12:00] VITALS: BP 113/56
[2019-09-15] MEDS: ONDANSETRON HCL 4MG/2ML INJ IV PRN (12:36)
[2019-09-15] MEDS ORDERED: OXYCODONE HCL/ACETAMINOPHEN 5/325MG TABLET PO PRN (13:15)
[2019-09-15 15:18] VITALS: BP 113/56
[2019-09-15 16:00] VITALS: BP 112/59
== END 2019-09-15 16:00 | DRG 459 ==
LOC: OR 08:10 → MICUNO 08:11 → 6EST 09-10 14:25
PROVIDERS: ADMIT Family Medicine Adult Medicine; ATTEND Family Medicine Adult Medicine
PROC: 0SG0071 Fusion of Lumbar Vertebral Joint with Autologous Tissue Substitute, Posterior Approach, Posterior Column, Open Approach (ICD-10-PCS; principal; 2019-09-08)
PROC: 0SP00JZ Removal of Synthetic Substitute from Lumbar Vertebral Joint, Open Approach (ICD-10-PCS; 2019-09-08)
PROC: 02HV33Z Insertion of Infusion Device into Superior Vena Cava, Percutaneous Approach (ICD-10-PCS; 2019-09-08)
PROC: B548ZZA Ultrasonography of Superior Vena Cava, Guidance (ICD-10-PCS; 2019-09-08)
DX: M48.061 Spinal stenosis, lumbar region without neurogenic claudication (principal); I63.513 Cerebral infarction due to unspecified occlusion or stenosis of bilateral middle cerebral arteries; G82.20 Paraplegia, unspecified; J96.11 Chronic respiratory failure with hypoxia; R47.01 Aphasia; M47.896 Other spondylosis, lumbar region; E78.5 Hyperlipidemia, unspecified; I10 Essential (primary) hypertension; E11.42 Type 2 diabetes mellitus with diabetic polyneuropathy; K21.9 Gastro-esophageal reflux disease without esophagitis; D72.829 Elevated white blood cell count, unspecified; E11.65 Type 2 diabetes mellitus with hyperglycemia; E53.8 Deficiency of other specified B group vitamins; E78.00 Pure hypercholesterolemia, unspecified; G25.0 Essential tremor; E87.6 Hypokalemia; G89.29 Other chronic pain; I25.10 Atherosclerotic heart disease of native coronary artery without angina pectoris; J43.9 Emphysema, unspecified; M47.816 Spondylosis without myelopathy or radiculopathy, lumbar region; R03.0 Elevated blood-pressure reading, without diagnosis of hypertension; M51.36 Other intervertebral disc degeneration, lumbar region; R13.10 Dysphagia, unspecified; Z79.02 Long term (current) use of antithrombotics/antiplatelets; Z79.899 Other long term (current) drug therapy; Z86.73 Personal history of transient ischemic attack (TIA), and cerebral infarction without residual deficits; Z87.891 Personal history of nicotine dependence; Z98.1 Arthrodesis status; Z88.0 Allergy status to penicillin; Z88.2 Allergy status to sulfonamides; Z88.8 Allergy status to other drugs, medicaments and biological substances
CPT/HCPCS: 36415; 70544; 70553; 71045; 72100; 76000; 76937; 80048; 80061; 82607; 82746; 82962; 83036; 83735; 84100; 84439; 84443; 84481; 85025; 88300; 92523; 92610; 93005; 93306; 93880; 94640; 95863; 95925; 95926; 95928; 95929; 95940; 97110; 97116; 97162; 97166; 97530; 97535; 97760; C1713; C1725; C9113; J0360; J1100; J1170; J1815; J2250; J2270; J2405; J2704; J2710; J2920; J3010; J3490; J7060; J7121; J7512; J7626; C9803-CS; U0003-CS

== ENCOUNTER 2019-09-15 15:57 | Inpatient (IN) | payer MEDICARE, MEDICAID ==
[~2019-09-15] VITALS: Ht 152.4 cm; Wt 57.6 kg
[2019-09-15] MEDS ORDERED: DEXTROSE 50% WATER 50ML SYRINGE IV PRN (17:15)
[2019-09-15] MEDS ORDERED: MAGNESIUM HYDROXIDE 400MG/5ML 30ML UDC PO PRN (17:15)
[2019-09-15] MEDS ORDERED: BISACODYL 10MG SUPP PR PRN (17:15)
[2019-09-15] MEDS ORDERED: SENNOSIDES/DOCUSATE SOD 8.6/50MG TABLET PO PRN (17:15)
[2019-09-15] MEDS ORDERED: POLYETHYLENE GLYCOL 3350 (17GM) 1 DOSE PACK PO PRN (17:15)
[2019-09-15 19:30] VITALS: BP 120/49
[2019-09-15 20:00] VITALS: BP 120/49
[2019-09-15] MEDS: BUDESONIDE 0.5MG/2ML NEB HHN SCH (20:44)
[2019-09-15] MEDS: IPRATROPIUM/ALBUTEROL 0.5-3(2.5)MG/3ML NEB HHN SCH (20:44)
[2019-09-15] MEDS: ATORVASTATIN CALCIUM 20MG TABLET PO SCH (21:14)
[2019-09-15] MEDS: LOSARTAN POTASSIUM 25 MG TABLET PO SCH (21:15)
[2019-09-15] MEDS: AMLODIPINE 2.5MG TABLET PO SCH (21:15)
[2019-09-15] MEDS: BLOOD SUGAR DIAGNOSTIC STRIP TEST SCH (21:15)
[2019-09-15] MEDS: OXYCODONE HCL/ACETAMINOPHEN 5/325MG TABLET PO PRN (21:42)
[2019-09-15] MEDS: INSULIN LISPRO 100 UNITS/ML SUBCUT SCH (21:49)
[2019-09-16] MEDS: ONDANSETRON HCL 4MG/2ML INJ IV PRN ×3 (00:22→08:47)
[2019-09-16] MEDS: OXYCODONE HCL/ACETAMINOPHEN 5/325MG TABLET PO PRN ×6 (00:38→23:14)
[2019-09-16] MEDS: IPRATROPIUM/ALBUTEROL 0.5-3(2.5)MG/3ML NEB HHN SCH ×4 (02:18→21:06)
[2019-09-16] MEDS: BLOOD SUGAR DIAGNOSTIC STRIP TEST SCH ×4 (06:53→21:00)
[2019-09-16] MEDS: INSULIN LISPRO 100 UNITS/ML SUBCUT SCH ×5 (07:12→21:00)
[2019-09-16 07:15] LABS: CLARITY URINE CLEAR (CLEAR); COLOR URINE YELLOW (YELLOW); KETONES URINE NEGATIVE (NEGATIVE); LEUKOCYTE ESTERASE URINE NEGATIVE (NEGATIVE); NITRITE URINE NEGATIVE (NEGATIVE); OCCULT BLOOD URINE NEGATIVE (NEGATIVE); PH URINE 5.5 (4.5-8.0); PROTEIN URINE NEGATIVE (NEGATIVE); SPECIFIC GRAVITY URINE 1.017 (1.005-1.030); UROBILINOGEN URINE 0.2 E.U./dL (0.2-1.0)
[2019-09-16] MEDS: BUDESONIDE 0.5MG/2ML NEB HHN SCH ×2 (07:46→21:06)
[2019-09-16 07:57] VITALS: BP 126/64
[2019-09-16] MEDS: AMLODIPINE 2.5MG TABLET PO SCH ×3 (08:34→21:00)
[2019-09-16] MEDS: LOSARTAN POTASSIUM 25 MG TABLET PO SCH ×3 (08:34→21:00)
[2019-09-16] MEDS: FAMOTIDINE 20MG TABLET PO SCH ×2 (08:34→09:36)
[2019-09-16] MEDS: PREDNISONE 10MG TABLET PO SCH ×2 (08:34→09:37)
[2019-09-16] MEDS: DOCUSATE SODIUM 100MG CAPSULE PO SCH ×2 (08:35→16:32)
[2019-09-16 08:52] LABS: BASOPHILS % 0.7 % (0.0-2.0); EOSINOPHILS % 0.8 % (0.0-5.0); HEMOGLOBIN. 11.5 g/dL (12.0-16.0); LYMPHOCYTES % 29.8 % (20.0-50.0); MEAN CORPUSCULAR HEMOGLOBIN 29.2 pg (28.0-32.0); MEAN PLATELET VOLUME 8.3 fl (7.4-10.4); MONOCYTES % 11.3 % (2.0-8.0); NEUTROPHILS % 57.4 % (40.0-76.0); PLATELET 187 x1000/uL (130-400); RED BLOOD CELL COUNT 3.93 mill/uL (4.2-5.4); RED CELL DISTRIBUTION WIDTH 16.1 % (11.6-14.6)
[2019-09-16 09:02] LABS: CHLORIDE 107 mEq/L (98-107)
[2019-09-16 09:08] LABS: PHOSPHORUS 2.7 mg/dL (2.5-4.9)
[2019-09-16 09:12] LABS: TOTAL IRON BINDING CAPACITY 253 ug/dL (250-450)
[2019-09-16 09:17] LABS: FERRITIN 114 ng/mL (10-291)
[2019-09-16 09:58] LABS: VITAMIN B12 SERUM 550 pg/mL (211-911)
[2019-09-16 10:22] LABS: FOLIC ACID (FOLATE) SERUM > 20.00 ng/mL (>5.38)
[2019-09-16] MEDS: ACETAMINOPHEN 325MG TABLET PO PRN ×2 (13:30→18:41)
[2019-09-16] MEDS ORDERED: POTASSIUM CHLORIDE 20MEQ TABLET SR PO NR ×2 (15:00→16:00)
[2019-09-16] MEDS ORDERED: CYANOCOBALAMIN 1000MCG/ML VIAL IM NR (15:00)
[2019-09-16] MEDS ORDERED: MAGNESIUM OXIDE 400MG TABLET PO NR (16:00)
[2019-09-16] MEDS: FERROUS SULFATE 325MG TABLET PO SCH (16:32)
[2019-09-16 20:00] VITALS: BP 118/60
[2019-09-16] MEDS: ATORVASTATIN CALCIUM 20MG TABLET PO SCH (21:00)
[2019-09-17] MEDS: IPRATROPIUM/ALBUTEROL 0.5-3(2.5)MG/3ML NEB HHN SCH ×5 (02:07→15:30)
[2019-09-17] MEDS: ACETAMINOPHEN 325MG TABLET PO PRN (06:01)
[2019-09-17] MEDS: BLOOD SUGAR DIAGNOSTIC STRIP TEST SCH ×4 (06:03→21:16)
[2019-09-17] MEDS: INSULIN LISPRO 100 UNITS/ML SUBCUT SCH ×4 (06:03→21:00)
[2019-09-17 07:35] LABS: CHLORIDE 107 mEq/L (98-107)
[2019-09-17] MEDS: BUDESONIDE 0.5MG/2ML NEB HHN SCH ×2 (07:55→09:46)
[2019-09-17 08:17] LABS: BASOPHILS % 1.2 % (0.0-2.0); EOSINOPHILS % 1.5 % (0.0-5.0); HEMATOCRIT. 33.4 % (36.0-48.0); LYMPHOCYTES % 32.2 % (20.0-50.0); MEAN CORPUSCULAR HEMOGLOBIN 29.4 pg (28.0-32.0); MEAN CORPUSCULAR VOLUME 88.9 fL (81.0-99.0); MEAN PLATELET VOLUME 8.3 fl (7.4-10.4); MONOCYTES % 9.4 % (2.0-8.0); NEUTROPHILS % 55.7 % (40.0-76.0); PLATELET 221 x1000/uL (130-400); RED BLOOD CELL COUNT 3.76 mill/uL (4.2-5.4); RED CELL DISTRIBUTION WIDTH 15.8 % (11.6-14.6)
[2019-09-17 08:19] VITALS: BP 102/42
[2019-09-17] MEDS: DOCUSATE SODIUM 100MG CAPSULE PO SCH ×2 (08:33→16:08)
[2019-09-17] MEDS: FERROUS SULFATE 325MG TABLET PO SCH ×3 (08:33→16:08)
[2019-09-17] MEDS: ASCORBIC ACID 500 MG TABLET PO SCH (08:33)
[2019-09-17] MEDS: LOSARTAN POTASSIUM 25 MG TABLET PO SCH ×4 (08:34→21:00)
[2019-09-17] MEDS: FAMOTIDINE 20MG TABLET PO SCH (08:34)
[2019-09-17] MEDS: PREDNISONE 10MG TABLET PO SCH (08:34)
[2019-09-17] MEDS: AMLODIPINE 2.5MG TABLET PO SCH ×3 (08:35→21:00)
[2019-09-17] MEDS: OXYCODONE HCL/ACETAMINOPHEN 5/325MG TABLET PO PRN ×2 (11:26→21:12)
[2019-09-17 15:01] VITALS: BP 125/63
[2019-09-17 20:00] VITALS: BP 140/59
[2019-09-17] MEDS: ATORVASTATIN CALCIUM 20MG TABLET PO SCH (21:11)
[2019-09-18] MEDS: BLOOD SUGAR DIAGNOSTIC STRIP TEST SCH ×4 (06:59→21:13)
[2019-09-18] MEDS: OXYCODONE HCL/ACETAMINOPHEN 5/325MG TABLET PO PRN ×3 (07:33→21:13)
[2019-09-18] MEDS: IPRATROPIUM/ALBUTEROL 0.5-3(2.5)MG/3ML NEB HHN SCH ×2 (07:55→14:25)
[2019-09-18] MEDS: BUDESONIDE 0.5MG/2ML NEB HHN SCH (07:55)
[2019-09-18 08:00] VITALS: BP 107/59
[2019-09-18] MEDS: FERROUS SULFATE 325MG TABLET PO SCH ×3 (08:48→17:13)
[2019-09-18] MEDS: ASCORBIC ACID 500 MG TABLET PO SCH (08:48)
[2019-09-18] MEDS: DOCUSATE SODIUM 100MG CAPSULE PO SCH ×2 (08:48→17:13)
[2019-09-18] MEDS: LOSARTAN POTASSIUM 25 MG TABLET PO SCH ×2 (08:48→21:12)
[2019-09-18] MEDS: INSULIN LISPRO 100 UNITS/ML SUBCUT SCH ×4 (08:49→21:00)
[2019-09-18] MEDS: AMLODIPINE 2.5MG TABLET PO SCH (08:49)
[2019-09-18] MEDS: FAMOTIDINE 20MG TABLET PO SCH (08:49)
[2019-09-18] MEDS: PREDNISONE 10MG TABLET PO SCH (08:49)
[2019-09-18 20:00] VITALS: BP_SYST 114; BP_SYST 116; BP_DIAS 19; BP_DIAS 44
[2019-09-18] MEDS: ATORVASTATIN CALCIUM 20MG TABLET PO SCH (21:12)
[2019-09-19] MEDS: IPRATROPIUM/ALBUTEROL 0.5-3(2.5)MG/3ML NEB HHN SCH ×4 (01:41→20:04)
[2019-09-19] MEDS: BLOOD SUGAR DIAGNOSTIC STRIP TEST SCH ×4 (06:05→21:29)
[2019-09-19] MEDS: INSULIN LISPRO 100 UNITS/ML SUBCUT SCH ×4 (06:07→21:51)
[2019-09-19 07:11] LABS: CHLORIDE 110 mEq/L (98-107)
[2019-09-19 07:14] LABS: BASOPHILS % 1.4 % (0.0-2.0); EOSINOPHILS % 1.3 % (0.0-5.0); HEMATOCRIT. 29.8 % (36.0-48.0); HEMOGLOBIN. 9.9 g/dL (12.0-16.0); LYMPHOCYTES % 28.4 % (20.0-50.0); MEAN CORPUSCULAR HEMOGLOBIN 29.6 pg (28.0-32.0); MONOCYTES % 10.3 % (2.0-8.0); NEUTROPHILS % 58.6 % (40.0-76.0); PLATELET 232 x1000/uL (130-400); RED BLOOD CELL COUNT 3.35 mill/uL (4.2-5.4); RED CELL DISTRIBUTION WIDTH 16.1 % (11.6-14.6)
[2019-09-19] MEDS: OXYCODONE HCL/ACETAMINOPHEN 5/325MG TABLET PO PRN ×3 (07:33→21:44)
[2019-09-19 08:00] VITALS: BP 102/41
[2019-09-19] MEDS: FERROUS SULFATE 325MG TABLET PO SCH ×3 (08:39→17:28)
[2019-09-19] MEDS: FAMOTIDINE 20MG TABLET PO SCH (08:39)
[2019-09-19] MEDS: ASCORBIC ACID 500 MG TABLET PO SCH (08:39)
[2019-09-19] MEDS: PREDNISONE 10MG TABLET PO SCH (08:39)
[2019-09-19] MEDS: DOCUSATE SODIUM 100MG CAPSULE PO SCH ×2 (08:39→17:00)
[2019-09-19] MEDS: LOSARTAN POTASSIUM 25 MG TABLET PO SCH (08:42)
[2019-09-19] MEDS ORDERED: POTASSIUM CHLORIDE 20MEQ TABLET SR PO SCH (11:45)
[2019-09-19 17:11] LABS: 25-HYDROXY VITAMIN D3 3.6 ng/mL (.)
[2019-09-19 20:18] VITALS: BP 125/40
[2019-09-19] MEDS: ATORVASTATIN CALCIUM 20MG TABLET PO SCH (21:30)
[2019-09-20] MEDS: IPRATROPIUM/ALBUTEROL 0.5-3(2.5)MG/3ML NEB HHN SCH ×4 (03:06→20:10)
[2019-09-20] MEDS: BLOOD SUGAR DIAGNOSTIC STRIP TEST SCH ×4 (06:04→20:58)
[2019-09-20] MEDS: INSULIN LISPRO 100 UNITS/ML SUBCUT SCH ×4 (06:38→21:01)
[2019-09-20] MEDS: OXYCODONE HCL/ACETAMINOPHEN 5/325MG TABLET PO PRN ×3 (07:42→20:57)
[2019-09-20 08:00] VITALS: BP 115/60
[2019-09-20 08:30] LABS: BASOPHILS % 0.9 % (0.0-2.0); EOSINOPHILS % 1.3 % (0.0-5.0); HEMOGLOBIN. 10.3 g/dL (12.0-16.0); LYMPHOCYTES % 29.3 % (20.0-50.0); MEAN CORPUSCULAR HEMOGLOBIN 29.3 pg (28.0-32.0); MEAN CORPUSCULAR VOLUME 88.4 fL (81.0-99.0); MEAN PLATELET VOLUME 8.2 fl (7.4-10.4); MONOCYTES % 8.5 % (2.0-8.0); PLATELET 219 x1000/uL (130-400); RED CELL DISTRIBUTION WIDTH 15.7 % (11.6-14.6)
[2019-09-20 08:51] LABS: CHLORIDE 110 mEq/L (98-107)
[2019-09-20 08:58] LABS: TOTAL IRON BINDING CAPACITY 220 ug/dL (250-450)
[2019-09-20] MEDS: DOCUSATE SODIUM 100MG CAPSULE PO SCH ×2 (09:00→16:42)
[2019-09-20 09:24] LABS: VITAMIN B12 SERUM 1098 pg/mL (211-911)
[2019-09-20] MEDS: FERROUS SULFATE 325MG TABLET PO SCH ×3 (09:25→16:39)
[2019-09-20] MEDS: FAMOTIDINE 20MG TABLET PO SCH (09:25)
[2019-09-20] MEDS: PREDNISONE 10MG TABLET PO SCH (09:26)
[2019-09-20] MEDS: ASCORBIC ACID 500 MG TABLET PO SCH (09:30)
[2019-09-20] MEDS ORDERED: ERGOCALCIFEROL 50000UNITS CAPSULE PO SCH (12:30)
[2019-09-20] MEDS ORDERED: POTASSIUM CHLORIDE 20MEQ TABLET SR PO SCH (15:00)
[2019-09-20 20:00] VITALS: BP 132/61
[2019-09-20] MEDS: ATORVASTATIN CALCIUM 20MG TABLET PO SCH (20:55)
[2019-09-21] MEDS: IPRATROPIUM/ALBUTEROL 0.5-3(2.5)MG/3ML NEB HHN SCH ×4 (02:59→22:52)
[2019-09-21] MEDS ORDERED: OXYCODONE HCL/ACETAMINOPHEN 5/325MG TABLET PO PRN (05:15)
[2019-09-21] MEDS: BLOOD SUGAR DIAGNOSTIC STRIP TEST SCH ×4 (06:21→20:52)
[2019-09-21 08:21] VITALS: BP 128/64
[2019-09-21] MEDS: FAMOTIDINE 20MG TABLET PO SCH (08:30)
[2019-09-21] MEDS: FERROUS SULFATE 325MG TABLET PO SCH ×3 (08:30→16:46)
[2019-09-21] MEDS: PREDNISONE 10MG TABLET PO SCH (08:30)
[2019-09-21] MEDS: ASCORBIC ACID 500 MG TABLET PO SCH (08:31)
[2019-09-21] MEDS: DOCUSATE SODIUM 100MG CAPSULE PO SCH ×2 (08:31→16:25)
[2019-09-21] MEDS: INSULIN LISPRO 100 UNITS/ML SUBCUT SCH ×4 (08:31→20:51)
[2019-09-21] MEDS: OXYCODONE HCL/ACETAMINOPHEN 5/325MG TABLET PO PRN ×2 (13:05→20:51)
[2019-09-21 20:00] VITALS: BP 122/43
[2019-09-21] MEDS: ATORVASTATIN CALCIUM 20MG TABLET PO SCH (20:48)
[2019-09-22] MEDS: OXYCODONE HCL/ACETAMINOPHEN 5/325MG TABLET PO PRN ×4 (03:41→22:04)
[2019-09-22] MEDS: BLOOD SUGAR DIAGNOSTIC STRIP TEST SCH ×4 (06:40→21:43)
[2019-09-22] MEDS: INSULIN LISPRO 100 UNITS/ML SUBCUT SCH ×4 (06:40→22:04)
[2019-09-22 08:00] VITALS: BP 138/50
[2019-09-22] MEDS: PREDNISONE 10MG TABLET PO SCH (08:59)
[2019-09-22] MEDS: FERROUS SULFATE 325MG TABLET PO SCH ×3 (08:59→16:36)
[2019-09-22] MEDS: FAMOTIDINE 20MG TABLET PO SCH (08:59)
[2019-09-22] MEDS: DOCUSATE SODIUM 100MG CAPSULE PO SCH ×2 (08:59→16:36)
[2019-09-22] MEDS: ASCORBIC ACID 500 MG TABLET PO SCH (08:59)
[2019-09-22 09:30] LABS: BASOPHILS % 1.6 % (0.0-2.0); EOSINOPHILS % 2.3 % (0.0-5.0); HEMATOCRIT. 31.9 % (36.0-48.0); HEMOGLOBIN. 10.6 g/dL (12.0-16.0); MEAN CORPUSCULAR HEMOGLOBIN 29.7 pg (28.0-32.0); MEAN CORPUSCULAR VOLUME 89.2 fL (81.0-99.0); MEAN PLATELET VOLUME 8.3 fl (7.4-10.4); MONOCYTES % 8.4 % (2.0-8.0); NEUTROPHILS % 55.7 % (40.0-76.0); PLATELET 287 x1000/uL (130-400); RED BLOOD CELL COUNT 3.58 mill/uL (4.2-5.4); RED CELL DISTRIBUTION WIDTH 15.8 % (11.6-14.6)
[2019-09-22 09:38] LABS: CHLORIDE 105 mEq/L (98-107)
[2019-09-22 09:43] LABS: PHOSPHORUS 3.4 mg/dL (2.5-4.9)
[2019-09-22] MEDS: IPRATROPIUM/ALBUTEROL 0.5-3(2.5)MG/3ML NEB HHN SCH ×2 (11:11→20:50)
[2019-09-22] MEDS: CLOPIDOGREL 75MG TABLET PO SCH (16:36)
[2019-09-22 20:00] VITALS: BP 137/62
[2019-09-22] MEDS: ATORVASTATIN CALCIUM 20MG TABLET PO SCH (22:05)
[2019-09-23] MEDS: IPRATROPIUM/ALBUTEROL 0.5-3(2.5)MG/3ML NEB HHN SCH ×4 (01:20→20:11)
[2019-09-23] MEDS: BLOOD SUGAR DIAGNOSTIC STRIP TEST SCH ×4 (07:21→21:50)
[2019-09-23 08:00] VITALS: BP 130/55
[2019-09-23] MEDS: DOCUSATE SODIUM 100MG CAPSULE PO SCH ×2 (08:49→17:51)
[2019-09-23] MEDS: FAMOTIDINE 20MG TABLET PO SCH (08:49)
[2019-09-23] MEDS: CLOPIDOGREL 75MG TABLET PO SCH (08:49)
[2019-09-23] MEDS: FERROUS SULFATE 325MG TABLET PO SCH ×3 (08:49→17:51)
[2019-09-23] MEDS: PREDNISONE 10MG TABLET PO SCH (08:49)
[2019-09-23] MEDS: OXYCODONE HCL/ACETAMINOPHEN 5/325MG TABLET PO PRN ×3 (08:49→23:49)
[2019-09-23] MEDS: ASCORBIC ACID 500 MG TABLET PO SCH (08:49)
[2019-09-23] MEDS: INSULIN LISPRO 100 UNITS/ML SUBCUT SCH ×4 (08:52→21:51)
[2019-09-23] MEDS ORDERED: ACETAMINOPHEN 650MG/20.3ML UDC PO PRN (19:15)
[2019-09-23 20:00] VITALS: BP 122/46
[2019-09-23] MEDS: ATORVASTATIN CALCIUM 20MG TABLET PO SCH (21:38)
[2019-09-24] MEDS: IPRATROPIUM/ALBUTEROL 0.5-3(2.5)MG/3ML NEB HHN SCH ×4 (02:32→20:29)
[2019-09-24 05:18] LABS: CHLORIDE 108 mEq/L (98-107)
[2019-09-24 06:04] LABS: BASOPHILS % 0.9 % (0.0-2.0); EOSINOPHILS % 2.1 % (0.0-5.0); HEMATOCRIT. 28.8 % (36.0-48.0); HEMOGLOBIN. 9.7 g/dL (12.0-16.0); LYMPHOCYTES % 32.5 % (20.0-50.0); MEAN CORPUSCULAR HEMOGLOBIN 29.9 pg (28.0-32.0); MEAN CORPUSCULAR VOLUME 88.4 fL (81.0-99.0); MEAN PLATELET VOLUME 8.1 fl (7.4-10.4); MONOCYTES % 9.8 % (2.0-8.0); NEUTROPHILS % 54.7 % (40.0-76.0); PLATELET 332 x1000/uL (130-400); RED BLOOD CELL COUNT 3.26 mill/uL (4.2-5.4); RED CELL DISTRIBUTION WIDTH 15.9 % (11.6-14.6)
[2019-09-24] MEDS: INSULIN LISPRO 100 UNITS/ML SUBCUT SCH ×4 (06:25→21:00)
[2019-09-24] MEDS: BLOOD SUGAR DIAGNOSTIC STRIP TEST SCH ×4 (06:25→21:36)
[2019-09-24 08:00] VITALS: BP 129/53
[2019-09-24] MEDS: CLOPIDOGREL 75MG TABLET PO SCH (08:10)
[2019-09-24] MEDS: DOCUSATE SODIUM 100MG CAPSULE PO SCH ×3 (08:10→17:00)
[2019-09-24] MEDS: FERROUS SULFATE 325MG TABLET PO SCH ×3 (08:10→17:54)
[2019-09-24] MEDS: ASCORBIC ACID 500 MG TABLET PO SCH (08:10)
[2019-09-24] MEDS: FAMOTIDINE 20MG TABLET PO SCH (08:10)
[2019-09-24] MEDS: PREDNISONE 10MG TABLET PO SCH (08:10)
[2019-09-24] MEDS: OXYCODONE HCL/ACETAMINOPHEN 5/325MG TABLET PO PRN ×3 (08:11→22:58)
[2019-09-24] MEDS ORDERED: POTASSIUM CHLORIDE 20MEQ TABLET SR PO NR (12:15)
[2019-09-24] MEDS ORDERED: OXYCODONE HCL 5MG TABLET PO PRN (12:15)
[2019-09-24] MEDS ORDERED: FERR325T23 PO (13:45)
[2019-09-24] MEDS ORDERED: OXYC-523 PO (13:45)
[2019-09-24] MEDS ORDERED: FAMO20TA8 PO (13:45)
[2019-09-24] MEDS ORDERED: MOM PO (13:45)
[2019-09-24] MEDS ORDERED: SENN-3 PO (13:45)
[2019-09-24] MEDS ORDERED: ASCO500T20 PO (13:45)
[2019-09-24] MEDS ORDERED: DOCU-150 PO (13:45)
[2019-09-24] MEDS ORDERED: TOPUD PO (13:45)
[2019-09-24 20:00] VITALS: BP 117/51
[2019-09-24] MEDS: ATORVASTATIN CALCIUM 20MG TABLET PO SCH (21:32)
[2019-09-25] MEDS: IPRATROPIUM/ALBUTEROL 0.5-3(2.5)MG/3ML NEB HHN SCH ×2 (02:25→08:31)
[2019-09-25] MEDS: INSULIN LISPRO 100 UNITS/ML SUBCUT SCH (06:47)
[2019-09-25] MEDS: OXYCODONE HCL/ACETAMINOPHEN 5/325MG TABLET PO PRN (06:47)
[2019-09-25] MEDS: BLOOD SUGAR DIAGNOSTIC STRIP TEST SCH (06:47)
[2019-09-25 08:04] VITALS: BP 134/46
[2019-09-25 08:42] VITALS: BP 134/46
[2019-09-25] MEDS: DOCUSATE SODIUM 100MG CAPSULE PO SCH (08:51)
[2019-09-25] MEDS: FERROUS SULFATE 325MG TABLET PO SCH (08:51)
[2019-09-25] MEDS: PREDNISONE 10MG TABLET PO SCH (08:51)
[2019-09-25] MEDS: CLOPIDOGREL 75MG TABLET PO SCH (08:51)
[2019-09-25] MEDS: ASCORBIC ACID 500 MG TABLET PO SCH (08:51)
[2019-09-25] MEDS: FAMOTIDINE 20MG TABLET PO SCH (08:51)
[2019-09-27] MEDS ORDERED: ERGOCALCIFEROL 50000UNITS CAPSULE PO SCH (09:00)
== END 2019-09-25 10:35 | disposition home or self-care (01) | DRG 65 ==
LOC: UNDOADMIN 16:20
PROVIDERS: ADMIT Physical Medicine & Rehabilitation Spinal Cord Injury Medicine; ATTEND Family Medicine Adult Medicine
DX: I63.513 Cerebral infarction due to unspecified occlusion or stenosis of bilateral middle cerebral arteries (principal); E44.0 Moderate protein-calorie malnutrition; G81.91 Hemiplegia, unspecified affecting right dominant side; G82.20 Paraplegia, unspecified; J96.11 Chronic respiratory failure with hypoxia; D72.829 Elevated white blood cell count, unspecified; E11.42 Type 2 diabetes mellitus with diabetic polyneuropathy; E11.65 Type 2 diabetes mellitus with hyperglycemia; E53.8 Deficiency of other specified B group vitamins; E61.1 Iron deficiency; E78.00 Pure hypercholesterolemia, unspecified; E78.5 Hyperlipidemia, unspecified; E87.6 Hypokalemia; G25.0 Essential tremor; G89.29 Other chronic pain; I10 Essential (primary) hypertension; J43.9 Emphysema, unspecified; K21.9 Gastro-esophageal reflux disease without esophagitis; M47.9 Spondylosis, unspecified; R51 Headache; E83.42 Hypomagnesemia; J44.9 Chronic obstructive pulmonary disease, unspecified; R47.1 Dysarthria and anarthria; M48.061 Spinal stenosis, lumbar region without neurogenic claudication; R13.10 Dysphagia, unspecified; R47.01 Aphasia; Z79.02 Long term (current) use of antithrombotics/antiplatelets; Z86.73 Personal history of transient ischemic attack (TIA), and cerebral infarction without residual deficits; Z68.24 Body mass index [BMI] 24.0-24.9, adult; Z98.1 Arthrodesis status; Z88.2 Allergy status to sulfonamides; Z88.0 Allergy status to penicillin; Z79.899 Other long term (current) drug therapy
CPT/HCPCS: 36415; 71046; 80048; 80053; 81003; 82270; 82306; 82607; 82728; 82746; 82962; 83540; 83550; 83735; 84100; 84134; 84443; 85025; 85044; 92523; 92610; 93005; 93970; 94640; 97110; 97112; 97116; 97162; 97166; 97530; 97535; J1815; J2405; J3420; J7512; J7626

== ENCOUNTER 2021-02-14 16:18 | Inpatient (IN) | payer MEDICARE, MEDICAID ==
[~2021-02-14] VITALS: Ht 152.4 cm; Wt 52.2 kg
[~2021-02-14 16:18] MED LIST changes: +ASCO500T20 PO; +CLOP-31 PO; -CLOP75TA4 PO; +DOCU-150 PO; +FAMO20TA8 PO; +FERR325T23 PO; -FURO-152 PO; +MOM PO; -MONT10TA26 PO; +MONT10TA32 PO; +OXYC1TAB5 PO; +SENN-3 PO; +TOPUD PO
[2021-02-14] MEDS ORDERED: SODIUM CHLORIDE 0.9% 1000ML BAG (SEPSIS BOLUS) IV ONE (17:00)
[2021-02-14] MEDS ORDERED: ONDANSETRON HCL 4MG/2ML INJ IV ONE (17:00)
[2021-02-14] MEDS ORDERED: MORPHINE SULFATE 2 MG/ML CPJ (NOT FOR IM USE) IV ONE (17:00)
[2021-02-14 18:24] LABS: BASOPHILS % 0.8 % (0.0-2.0); EOSINOPHILS % 0.8 % (0.0-5.0); HEMATOCRIT. 41.7 % (36.0-48.0); HEMOGLOBIN. 13.8 g/dL (12.0-16.0); LYMPHOCYTES % 20.2 % (20.0-50.0); MEAN CORPUSCULAR HEMOGLOBIN 30.2 pg (28.0-32.0); MEAN CORPUSCULAR VOLUME 91.2 fL (81.0-99.0); MEAN PLATELET VOLUME 8.5 fl (7.4-10.4); MONOCYTES % 13.3 % (2.0-8.0); NEUTROPHILS % 64.9 % (40.0-76.0); PLATELET 285 x1000/uL (130-400); RED BLOOD CELL COUNT 4.57 mill/uL (4.2-5.4); RED CELL DISTRIBUTION WIDTH 14.1 % (11.6-14.6)
[2021-02-14 18:32] LABS: CHLORIDE 100 mEq/L (98-107)
[2021-02-14 18:36] LABS: INR 1.1; PARTIAL THROMBOPLASTIN TIME 25.7 sec (23.4-31.0); PROTHROMBIN TIME 11.4 sec (9.6-11.0)
[2021-02-14 19:37] LABS: CLARITY URINE CLOUDY (CLEAR); COLOR URINE YELLOW (YELLOW); KETONES URINE TRACE (NEGATIVE); LEUKOCYTE ESTERASE URINE 1+ (NEGATIVE); NITRITE URINE NEGATIVE (NEGATIVE); OCCULT BLOOD URINE NEGATIVE (NEGATIVE); PH URINE 5.5 (4.5-8.0); PROTEIN URINE 1+ (NEGATIVE); SPECIFIC GRAVITY URINE 1.021 (1.005-1.030); UROBILINOGEN URINE 0.2 E.U./dL (0.2-1.0)
[2021-02-14] MEDS ORDERED: LEVOFLOXACIN 750MG PREMIX 150 ML IV ONE (20:30)
[2021-02-14] MEDS ORDERED: ACETAMINOPHEN 325MG TABLET PO PRN ×2 (22:00)
[2021-02-14] MEDS ORDERED: ONDANSETRON HCL 4MG/2ML INJ IV PRN (22:00)
[2021-02-14] MEDS ORDERED: ENOXAPARIN 30MG/0.3ML SYR SUBCUT SCH (22:00)
[2021-02-14] MEDS ORDERED: DEXTROSE 50% WATER 50ML SYRINGE IV PRN (22:00)
[2021-02-14] MEDS: SODIUM CHLORIDE 0.9% 1,000 ML IV SCH ×2 (22:00→22:52)
[2021-02-14] MEDS: HYDROCODONE/ACETAMINOPHEN 5/325MG TABLET PO PRN (22:59)
[2021-02-15 01:00] VITALS: BP 113/43
[2021-02-15] MEDS ORDERED: INFLUENZA VACCINE 05/PF 0.5 ML SYRINGE IM ONE (02:45)
[2021-02-15] MEDS: HYDROCODONE/ACETAMINOPHEN 5/325MG TABLET PO PRN (03:16)
[2021-02-15 04:00] VITALS: BP 112/90
[2021-02-15] MEDS: BLOOD SUGAR DIAGNOSTIC STRIP TEST SCH ×4 (06:14→21:20)
[2021-02-15] MEDS: INSULIN LISPRO 100 UNITS/ML SUBCUT SCH ×4 (06:14→22:13)
[2021-02-15 07:28] LABS: BASOPHILS % 1.1 % (0.0-2.0); EOSINOPHILS % 2.5 % (0.0-5.0); HEMATOCRIT. 36.4 % (36.0-48.0); HEMOGLOBIN. 12.1 g/dL (12.0-16.0); MEAN CORPUSCULAR HEMOGLOBIN 30.7 pg (28.0-32.0); MEAN CORPUSCULAR VOLUME 92.1 fL (81.0-99.0); MEAN PLATELET VOLUME 8.5 fl (7.4-10.4); MONOCYTES % 14.9 % (2.0-8.0); NEUTROPHILS % 49.5 % (40.0-76.0); PLATELET 231 x1000/uL (130-400); RED BLOOD CELL COUNT 3.96 mill/uL (4.2-5.4); RED CELL DISTRIBUTION WIDTH 14.2 % (11.6-14.6)
[2021-02-15 07:31] LABS: CHLORIDE 108 mEq/L (98-107)
[2021-02-15 07:37] LABS: PHOSPHORUS 2.7 mg/dL (2.5-4.9)
[2021-02-15 08:00] VITALS: BP 122/53
[2021-02-15] MEDS ORDERED: NALOXONE HCL 0.4MG/ML VIAL IV PRN (08:00)
[2021-02-15] MEDS: SODIUM CHLORIDE 0.9% 1,000 ML IV SCH ×2 (10:08→20:00)
[2021-02-15] MEDS: HYDROCODONE/ACETAMINOPHEN 10/325MG TABLET PO PRN ×2 (10:47→18:46)
[2021-02-15] MEDS ORDERED: ALBUTEROL (0.083%) 2.5MG/3ML NEB HHN PRN (11:00)
[2021-02-15] MEDS ORDERED: POTASSIUM CHLORIDE 20MEQ TABLET SR PO NR ×2 (11:30→13:30)
[2021-02-15 12:00] VITALS: BP 124/64
[2021-02-15] MEDS: IPRATROPIUM/ALBUTEROL 0.5-3(2.5)MG/3ML NEB HHN SCH ×3 (12:14→21:08)
[2021-02-15] MEDS: METHYLPREDNISOLONE SOD SUCC 40 MG/ML VIAL IV SCH ×2 (12:35→22:11)
[2021-02-15 16:00] VITALS: BP 127/55
[2021-02-15 20:00] VITALS: BP 110/71
[2021-02-15] MEDS ORDERED: FERR325T6 PO (21:43)
[2021-02-15] MEDS ORDERED: MAGNESIUM HYDROXIDE 400MG/5ML 30ML UDC PO PRN (21:45)
[2021-02-15] MEDS: LEVETIRACETAM 250MG TABLET PO SCH (22:10)
[2021-02-15] MEDS: ENOXAPARIN 40MG/0.4ML SYR SUBCUT SCH (22:49)
[2021-02-15] MEDS: TOPIRAMATE 25MG TABLET PO SCH (23:01)
[2021-02-16] VITALS (7 sets, daily range): BP systolic 117–144; BP diastolic 46–98
[2021-02-16] MEDS: IPRATROPIUM/ALBUTEROL 0.5-3(2.5)MG/3ML NEB HHN SCH ×6 (00:30→21:10)
[2021-02-16] MEDS: SODIUM CHLORIDE 0.9% 1,000 ML IV SCH ×3 (04:00→23:15)
[2021-02-16] MEDS: BLOOD SUGAR DIAGNOSTIC STRIP TEST SCH ×4 (06:14→21:00)
[2021-02-16] MEDS: INSULIN LISPRO 100 UNITS/ML SUBCUT SCH ×4 (06:14→21:00)
[2021-02-16 07:41] LABS: CHLORIDE 112 mEq/L (98-107)
[2021-02-16 07:46] LABS: BASOPHILS % 0.3 % (0.0-2.0); HEMATOCRIT. 36.6 % (36.0-48.0); HEMOGLOBIN. 12.4 g/dL (12.0-16.0); LYMPHOCYTES % 17.2 % (20.0-50.0); MEAN CORPUSCULAR HEMOGLOBIN 30.8 pg (28.0-32.0); MONOCYTES % 5.1 % (2.0-8.0); NEUTROPHILS % 77.4 % (40.0-76.0); PLATELET 222 x1000/uL (130-400); RED BLOOD CELL COUNT 4.02 mill/uL (4.2-5.4); RED CELL DISTRIBUTION WIDTH 13.9 % (11.6-14.6)
[2021-02-16 07:50] LABS: PHOSPHORUS 2.4 mg/dL (2.5-4.9)
[2021-02-16] MEDS: TOPIRAMATE 25MG TABLET PO SCH ×2 (09:00→22:11)
[2021-02-16] MEDS: FAMOTIDINE 20MG TABLET PO SCH (09:25)
[2021-02-16] MEDS: LEVETIRACETAM 250MG TABLET PO SCH ×2 (09:25→22:02)
[2021-02-16] MEDS: METHYLPREDNISOLONE SOD SUCC 40 MG/ML VIAL IV SCH ×2 (09:25→22:10)
[2021-02-16] MEDS: FERROUS SULFATE 325MG TABLET PO SCH ×3 (09:25→16:53)
[2021-02-16] MEDS: HYDROCODONE/ACETAMINOPHEN 10/325MG TABLET PO PRN ×3 (10:17→23:15)
[2021-02-16] MEDS ORDERED: LEVOFLOXACIN 750MG PREMIX 150 ML IV SCH ×2 (11:00→20:00)
[2021-02-16] MEDS ORDERED: FAMO40TA70 PO (13:27)
[2021-02-16] MEDS ORDERED: FLUT1DIS6 INH (13:27)
[2021-02-16] MEDS ORDERED: SUCR1TAB30 PO (13:27)
[2021-02-16] MEDS ORDERED: DAPA5TAB PO (13:27)
[2021-02-16] MEDS ORDERED: POTA8CAP20 PO (13:27)
[2021-02-16] MEDS ORDERED: KEPP250 PO (13:27)
[2021-02-16] MEDS: MEROPENEM 1000MG in NORMAL SALINE 100ML IV SCH (15:53)
[2021-02-16] MEDS ORDERED: LOSARTAN POTASSIUM 50 MG TABLET PO SCH (21:00)
[2021-02-16] MEDS: ENOXAPARIN 40MG/0.4ML SYR SUBCUT SCH (22:09)
[2021-02-17] MEDS: IPRATROPIUM/ALBUTEROL 0.5-3(2.5)MG/3ML NEB HHN SCH ×3 (00:48→08:32)
[2021-02-17 04:00] VITALS: BP 140/44
[2021-02-17] MEDS: MEROPENEM 1000MG in NORMAL SALINE 100ML IV SCH (05:26)
[2021-02-17] MEDS: BLOOD SUGAR DIAGNOSTIC STRIP TEST SCH ×3 (06:55→10:58)
[2021-02-17] MEDS: INSULIN LISPRO 100 UNITS/ML SUBCUT SCH (06:55)
[2021-02-17 06:58] LABS: BASOPHILS % 0.3 % (0.0-2.0); HEMATOCRIT. 36.1 % (36.0-48.0); HEMOGLOBIN. 12.1 g/dL (12.0-16.0); LYMPHOCYTES % 9.4 % (20.0-50.0); MEAN CORPUSCULAR HEMOGLOBIN 30.5 pg (28.0-32.0); MEAN CORPUSCULAR VOLUME 90.8 fL (81.0-99.0); MEAN PLATELET VOLUME 8.9 fl (7.4-10.4); MONOCYTES % 4.6 % (2.0-8.0); NEUTROPHILS % 85.7 % (40.0-76.0); PLATELET 221 x1000/uL (130-400); RED BLOOD CELL COUNT 3.97 mill/uL (4.2-5.4); RED CELL DISTRIBUTION WIDTH 14.1 % (11.6-14.6)
[2021-02-17 07:11] LABS: CHLORIDE 113 mEq/L (98-107)
[2021-02-17 07:17] LABS: PHOSPHORUS 2.5 mg/dL (2.5-4.9)
[2021-02-17 08:00] VITALS: BP 122/50
[2021-02-17] MEDS: TOPIRAMATE 25MG TABLET PO SCH (08:48)
[2021-02-17] MEDS: METHYLPREDNISOLONE SOD SUCC 40 MG/ML VIAL IV SCH (08:48)
[2021-02-17] MEDS: FERROUS SULFATE 325MG TABLET PO SCH (08:48)
[2021-02-17] MEDS: FAMOTIDINE 20MG TABLET PO SCH (08:49)
[2021-02-17] MEDS: LEVETIRACETAM 250MG TABLET PO SCH (08:49)
[2021-02-17] MEDS: SODIUM CHLORIDE 0.9% 1,000 ML IV SCH (10:49)
== END 2021-02-17 11:35 | disposition left against medical advice (07) | DRG 872 ==
LOC: ER 16:18 → 7EST 20:27 → EDBEDREQ 20:30 → EDBEDREQTM 20:30 → SUPCPDRO 21:49 → ENRESERV 23:49
PROVIDERS: ADMIT Internal Medicine; ATTEND Internal Medicine
DX: A41.51 Sepsis due to Escherichia coli [E. coli] (principal); N17.9 Acute kidney failure, unspecified; N39.0 Urinary tract infection, site not specified; J96.10 Chronic respiratory failure, unspecified whether with hypoxia or hypercapnia; D84.821 Immunodeficiency due to drugs; Z16.12 Extended spectrum beta lactamase (ESBL) resistance; K21.9 Gastro-esophageal reflux disease without esophagitis; E11.9 Type 2 diabetes mellitus without complications; G40.909 Epilepsy, unspecified, not intractable, without status epilepticus; I10 Essential (primary) hypertension; J44.9 Chronic obstructive pulmonary disease, unspecified; K76.89 Other specified diseases of liver; G89.29 Other chronic pain; Z20.822 Contact with and (suspected) exposure to COVID-19; T38.0X5A Adverse effect of glucocorticoids and synthetic analogues, initial encounter; E83.42 Hypomagnesemia; E87.6 Hypokalemia; Z79.02 Long term (current) use of antithrombotics/antiplatelets; Z87.891 Personal history of nicotine dependence; Z88.0 Allergy status to penicillin; Z88.2 Allergy status to sulfonamides; Z86.73 Personal history of transient ischemic attack (TIA), and cerebral infarction without residual deficits; Z79.84 Long term (current) use of oral hypoglycemic drugs; Z88.8 Allergy status to other drugs, medicaments and biological substances; Z79.899 Other long term (current) drug therapy; Z79.891 Long term (current) use of opiate analgesic; Z79.1 Long term (current) use of non-steroidal anti-inflammatories (NSAID); Y92.89 Other specified places as the place of occurrence of the external cause
CPT/HCPCS: 36415; 71045; 74176; 80048; 80053; 81003; 82962; 83036; 83605; 83735; 83880; 84100; 84145; 84484; 85025; 87077; 87186; 87426; 90686; 93005; 94640; 97161; 99285; J1650; J1815; J1956; J2185; J2270; J2405; J2920; J7030

== ENCOUNTER 2023-01-19 13:40 | Inpatient (IN) | payer MEDICARE, MEDICAID ==
[~2023-01-19] VITALS: Ht 154.9 cm; Wt 50.0 kg
[~2023-01-19 13:40] MED LIST changes: +ALBU6.7H3 IH; -ALBU6.7H9 IH; +CYCL10TA21 PO; -CYCL10TA7 PO; +DAPA5TAB PO; -FAMO20TA8 PO; -FERR325T23 PO; +FLUT1DIS6 INH; +IMOD PO; +KEPP250 PO; -MECL-159 PO; +MECL-299 PO; +MONT-39 PO; -MONT10TA32 PO; +OMEP40CA20 MT; -OXYC-89 PO; -OXYC1TAB5 PO; +POTA8CAP20 PO; +SUCR1TAB30 PO; +SULF1TAB48 PO
[2023-01-19] MEDS ORDERED: VANCOMYCIN 1G PREMIX 200 ML IV ONE (14:00)
[2023-01-19] MEDS ORDERED: MEROPENEM 1,000 MG in SODIUM CHLORIDE 0.9% 100 ML IV SCH (14:00)
[2023-01-19] MEDS ORDERED: LEVETIRACETAM 500MG PREMIX 100 ML IV ONE ×2 (14:15)
[2023-01-19] MEDS ORDERED: IOHEXOL-350 100 ML BOTTLE ONE (14:22)
[2023-01-19 14:41] LABS: BASOPHILS % 0.5 % (0.0-2.0); HEMATOCRIT. 36.8 % (36.0-48.0); HEMOGLOBIN. 12.8 g/dL (12.0-16.0); LYMPHOCYTES % 13.9 % (20.0-50.0); MEAN CORPUSCULAR HEMOGLOBIN 31.9 pg (28.0-32.0); MEAN CORPUSCULAR HGB CONC 34.7 g/dL (31.0-37.0); MEAN CORPUSCULAR VOLUME 92.1 fL (81.0-99.0); MONOCYTES % 6.9 % (2.0-8.0); NEUTROPHILS % 77.7 % (40.0-76.0); PLATELET 212 x1000/uL (130-400); RED CELL DISTRIBUTION WIDTH 13.6 % (11.6-14.6)
[2023-01-19 14:50] LABS: INR 1.1; PROTHROMBIN TIME 11.6 sec (9.6-11.0)
[2023-01-19 15:00] LABS: AMMONIA < 10 uMol/L (<32)
[2023-01-19] MEDS ORDERED: SODIUM CHLORIDE 0.9% 1000ML BAG (SEPSIS BOLUS) IV NR (15:00)
[2023-01-19 15:01] LABS: CLARITY URINE CLEAR (CLEAR); COLOR URINE YELLOW (YELLOW)
[2023-01-19 15:04] LABS: GLUCOSE URINE TRACE (NEGATIVE); KETONES URINE NEGATIVE (NEGATIVE); LEUKOCYTE ESTERASE URINE NEGATIVE (NEGATIVE); NITRITE URINE NEGATIVE (NEGATIVE); OCCULT BLOOD URINE 1+ (NEGATIVE); PROTEIN URINE 1+ (NEGATIVE); UROBILINOGEN URINE 0.2 E.U./dL (0.2-1.0)
[2023-01-19 15:10] LABS: SQUAMOUS EPITHELIAL CELL URINE FEW /lpf (RARE/1+)
[2023-01-19 15:12] LABS: RBC URINE 0-2 /hpf (0-2); WBC URINE 0-2 /hpf (0-2)
[2023-01-19 15:13] LABS: BACTERIA URINE NONE SEEN; LACTIC ACID 6.2 mmol/L (0.4-2.0)
[2023-01-19 15:22] LABS: *AMPHETAMINES SCREEN URINE NEGATIVE (NEGATIVE); *BARBITURATES SCREEN URINE PRESUMPTIVE POSITIVE (NEGATIVE); *BENZODIAZEPINES SCREEN URINE PRESUMPTIVE POSITIVE (NEGATIVE); *COCAINE SCREEN URINE NEGATIVE (NEGATIVE); CANNABINOID URINE SCREEN PRESUMPTIVE POSITIVE (NEGATIVE); ECSTASY MDMA SCREEN URINE NEGATIVE (NEGATIVE); METHADONE URINE SCREEN Neg (NEGATIVE); OPIATES URINE SCREEN NEGATIVE (NEGATIVE); PHENCYCLIDINE URINE SCREEN NEGATIVE (NEGATIVE)
[2023-01-19] MEDS ORDERED: MORPHINE SULFATE 4 MG/ML CPJ (NOT FOR IM USE) IV ONE ×2 (15:45→16:30)
[2023-01-19 16:04] LABS: ALANINE AMINOTRANSFERASE 29 IU/L (10-49); ALBUMIN 3.9 g/dL (3.2-4.8); ASPARTATE AMINOTRANSFERASE 36 IU/L (<34); BILIRUBIN TOTAL 0.4 mg/dL (0.1-1.0); CALCIUM 8.5 mg/dL (8.7-10.4); CARBON DIOXIDE 24 mEq/L (21-32); CHLORIDE 97 mEq/L (98-107); CREATINE KINASE 388 IU/L (34-145); CREATININE 0.8 mg/dL (0.6-1.0); GLUCOSE 160 mg/dL (70-105); PHOSPHORUS 3.5 mg/dL (2.5-4.9); PROTEIN TOTAL 6.3 g/dL (6.0-8.3); SODIUM 136 mEq/L (136-145); UREA NITROGEN BLOOD 9 mg/dL (9-23)
[2023-01-19] MEDS ORDERED: MAGNESIUM 2 G PREMIX 50 ML IV NR (16:15)
[2023-01-19 16:40] LABS: ETHANOL BLOOD < 10 mg/dL (<10); POTASSIUM 2.8 mEq/L (3.5-5.1)
[2023-01-19] MEDS ORDERED: HYDRALAZINE 20MG/ML VIAL IV ONE (16:45)
[2023-01-19] MEDS ORDERED: KCL 10MEQ/50ML PREMIX 100 ML IV SCH (17:00)
[2023-01-19] MEDS ORDERED: MAGNESIUM 2 G PREMIX 50 ML IV ONE (17:00)
[2023-01-19] MEDS ORDERED: KCL 20MEQ/100ML PREMIX 100 ML IV NR (17:15)
[2023-01-19] MEDS ORDERED: IPRATROPIUM/ALBUTEROL 0.5-3(2.5)MG/3ML NEB NEB PRN (17:30)
[2023-01-19] MEDS ORDERED: ONDANSETRON HCL 4MG/2ML INJ IV PRN (17:30)
[2023-01-19] MEDS ORDERED: ACETAMINOPHEN 325MG TABLET PO PRN (17:30)
[2023-01-19] MEDS ORDERED: LORAZEPAM 4MG/ML VIAL IV PRN (17:30)
[2023-01-19] MEDS ORDERED: SODIUM CHL 0.45% + KCL 20MEQ/L 1,000 ML IV SCH (17:30)
[2023-01-19] MEDS ORDERED: DIPHENHYDRAMINE 50MG/ML VIAL IV PRN (17:30)
[2023-01-19] MEDS ORDERED: CLONIDINE 0.1MG TABLET PO PRN (17:30)
[2023-01-19] MEDS ORDERED: MAGNESIUM/ALUMINUM HYDROXIDE/SIMETHICONE 30ML UDC PO PRN (17:30)
[2023-01-19] MEDS ORDERED: LEVETIRACETAM 250 MG in SODIUM CHLORIDE 0.9% 100 ML IV SCH (21:00)
[2023-01-19] MEDS: OXYBUTYNIN CHLORIDE 5MG TABLET PO SCH (22:00)
[2023-01-19] MEDS: PRIMIDONE 50MG TABLET PO SCH (22:45)
[2023-01-19] MEDS: SODIUM CHL 0.45% + KCL 20MEQ/L 1,000 ML IV SCH (22:46)
[2023-01-20 05:28] LABS: BASOPHILS % 0.6 % (0.0-2.0); EOSINOPHILS % 1.2 % (0.0-5.0); HEMOGLOBIN. 13.8 g/dL (12.0-16.0); LYMPHOCYTES % 17.2 % (20.0-50.0); MEAN CORPUSCULAR HEMOGLOBIN 31.3 pg (28.0-32.0); MEAN CORPUSCULAR HGB CONC 32.8 g/dL (31.0-37.0); MEAN CORPUSCULAR VOLUME 95.5 fL (81.0-99.0); MEAN PLATELET VOLUME 9.3 fl (7.4-10.4); MONOCYTES % 13.5 % (2.0-8.0); NEUTROPHILS % 67.5 % (40.0-76.0); PLATELET 221 x1000/uL (130-400); RED CELL DISTRIBUTION WIDTH 14.3 % (11.6-14.6); WHITE BLOOD COUNT 12.2 x1000/uL (4.5-11.0)
[2023-01-20 05:47] LABS: ALANINE AMINOTRANSFERASE 23 IU/L (10-49); ALBUMIN 3.6 g/dL (3.2-4.8); ASPARTATE AMINOTRANSFERASE 31 IU/L (<34); BILIRUBIN TOTAL 0.4 mg/dL (0.1-1.0); CALCIUM 8.5 mg/dL (8.7-10.4); CARBON DIOXIDE 25 mEq/L (21-32); CHLORIDE 104 mEq/L (98-107); CREATININE 0.6 mg/dL (0.6-1.0); GLUCOSE 89 mg/dL (70-105); PHOSPHORUS 3.8 mg/dL (2.5-4.9); POTASSIUM 3.8 mEq/L (3.5-5.1); PROTEIN TOTAL 6.1 g/dL (6.0-8.3); SODIUM 137 mEq/L (136-145); UREA NITROGEN BLOOD 5 mg/dL (9-23)
[2023-01-20] MEDS: LEVETIRACETAM 500MG PREMIX 100 ML IV SCH ×2 (09:00→22:27)
[2023-01-20] MEDS: PRIMIDONE 50MG TABLET PO SCH ×2 (09:00→21:30)
[2023-01-20] MEDS: DULOXETINE HCL 30MG DR CAPSULE PO SCH (09:00)
[2023-01-20] MEDS ORDERED: LEVETIRACETAM 500 MG in SODIUM CHLORIDE 0.9% 100 ML IV SCH (09:00)
[2023-01-20] MEDS ORDERED: HYDRALAZINE 20MG/ML VIAL IV PRN (10:00)
[2023-01-20 15:10] VITALS: BP 150/64; PULSE 76; RESP 27; TEMP 97.8
[2023-01-20 16:00] VITALS: BP 152/65; PULSE 72; RESP 15; TEMP 97.8
[2023-01-20] MEDS: MORPHINE SULFATE 2 MG/ML CPJ (NOT FOR IM USE) IV PRN (16:41)
[2023-01-20] MEDS ORDERED: MAGNESIUM 1 G PREMIX 100 ML IV NR (17:15)
[2023-01-20] MEDS: SODIUM CHL 0.45% + KCL 20MEQ/L 1,000 ML IV SCH (18:29)
[2023-01-20 20:00] VITALS: BP 157/61; PULSE 73; RESP 14; TEMP 98.3
[2023-01-20 22:00] VITALS: BP 138/58; PULSE 78; RESP 16
[2023-01-20] MEDS: OXYBUTYNIN CHLORIDE 5MG TABLET PO SCH (22:40)
[2023-01-21] VITALS (11 sets, daily range): BP systolic 123–142; BP diastolic 52–62; PULSE 75–101; RESP 14–18; TEMP 98–99
[2023-01-21 05:16] LABS: BASOPHILS % 0.7 % (0.0-2.0); EOSINOPHILS % 2.7 % (0.0-5.0); HEMATOCRIT. 38.3 % (36.0-48.0); HEMOGLOBIN. 13.2 g/dL (12.0-16.0); MEAN CORPUSCULAR HGB CONC 34.5 g/dL (31.0-37.0); MEAN CORPUSCULAR VOLUME 92.5 fL (81.0-99.0); MEAN PLATELET VOLUME 9.6 fl (7.4-10.4); MONOCYTES % 10.4 % (2.0-8.0); NEUTROPHILS % 62.2 % (40.0-76.0); PLATELET 230 x1000/uL (130-400); RED BLOOD CELL COUNT 4.14 mill/uL (4.2-5.4); RED CELL DISTRIBUTION WIDTH 14.3 % (11.6-14.6); WHITE BLOOD COUNT 10.9 x1000/uL (4.5-11.0)
[2023-01-21 05:36] LABS: ALANINE AMINOTRANSFERASE 18 IU/L (10-49); ALBUMIN 3.6 g/dL (3.2-4.8); ASPARTATE AMINOTRANSFERASE 22 IU/L (<34); BILIRUBIN DIRECT 0.1 mg/dL (<=3.0); BILIRUBIN TOTAL 0.5 mg/dL (0.1-1.0); CALCIUM 8.6 mg/dL (8.7-10.4); CARBON DIOXIDE 29 mEq/L (21-32); CHLORIDE 102 mEq/L (98-107); CREATININE 0.7 mg/dL (0.6-1.0); GLUCOSE 79 mg/dL (70-105); POTASSIUM 3.8 mEq/L (3.5-5.1); PROTEIN TOTAL 5.7 g/dL (6.0-8.3); SODIUM 138 mEq/L (136-145); UREA NITROGEN BLOOD 7 mg/dL (9-23)
[2023-01-21] MEDS: SODIUM CHL 0.45% + KCL 20MEQ/L 1,000 ML IV SCH ×2 (06:27→23:55)
[2023-01-21] MEDS: OXYBUTYNIN CHLORIDE 5MG TABLET PO SCH ×3 (06:27→21:30)
[2023-01-21] MEDS: LEVETIRACETAM 500MG PREMIX 100 ML IV SCH ×2 (08:26→21:30)
[2023-01-21] MEDS: PRIMIDONE 50MG TABLET PO SCH ×2 (08:26→21:30)
[2023-01-21] MEDS: DULOXETINE HCL 30MG DR CAPSULE PO SCH (08:26)
[2023-01-21] MEDS: MORPHINE SULFATE 2 MG/ML CPJ (NOT FOR IM USE) IV PRN (11:32)
[2023-01-21] MEDS ORDERED: NALOXONE HCL 0.4MG/ML VIAL IV PRN (13:15)
[2023-01-21] MEDS ORDERED: POTASSIUM CHLORIDE INJ 20 MEQ in SODIUM CHLORIDE 0.45% 1,000 ML IV SCH (15:00)
[2023-01-21] MEDS: ACETAMINOPHEN 325MG TABLET PO PRN (22:35)
[2023-01-22] VITALS: BP 121/52; PULSE 80; RESP 18; TEMP 98.7
[2023-01-22 04:25] VITALS: BP 124/71; PULSE 79; RESP 20; TEMP 98.9
[2023-01-22 06:18] LABS: BASOPHILS % 0.6 % (0.0-2.0); EOSINOPHILS % 2.3 % (0.0-5.0); HEMATOCRIT. 35.8 % (36.0-48.0); HEMOGLOBIN. 12.1 g/dL (12.0-16.0); LYMPHOCYTES % 31.3 % (20.0-50.0); MEAN CORPUSCULAR HEMOGLOBIN 31.5 pg (28.0-32.0); MEAN CORPUSCULAR HGB CONC 33.8 g/dL (31.0-37.0); MEAN CORPUSCULAR VOLUME 93.1 fL (81.0-99.0); MEAN PLATELET VOLUME 9.6 fl (7.4-10.4); MONOCYTES % 9.8 % (2.0-8.0); PLATELET 233 x1000/uL (130-400); RED BLOOD CELL COUNT 3.84 mill/uL (4.2-5.4); WHITE BLOOD COUNT 10.6 x1000/uL (4.5-11.0)
[2023-01-22] MEDS: OXYBUTYNIN CHLORIDE 5MG TABLET PO SCH ×3 (06:21→21:19)
[2023-01-22 08:00] VITALS: BP 140/71; PULSE 82; RESP 18; TEMP 99
[2023-01-22] MEDS ORDERED: FAMOTIDINE 20MG/2ML VIAL IV SCH (09:00)
[2023-01-22 09:04] LABS: ALANINE AMINOTRANSFERASE 16 IU/L (10-49); ALBUMIN 3.4 g/dL (3.2-4.8); ASPARTATE AMINOTRANSFERASE 19 IU/L (<34); BILIRUBIN DIRECT 0.2 mg/dL (<=3.0); BILIRUBIN TOTAL 0.5 mg/dL (0.1-1.0); CALCIUM 8.6 mg/dL (8.7-10.4); CARBON DIOXIDE 20 mEq/L (21-32); CHLORIDE 101 mEq/L (98-107); CREATININE 0.6 mg/dL (0.6-1.0); GLUCOSE 51 mg/dL (70-105); POTASSIUM 3.6 mEq/L (3.5-5.1); PROTEIN TOTAL 5.2 g/dL (6.0-8.3); SODIUM 134 mEq/L (136-145); UREA NITROGEN BLOOD 8 mg/dL (9-23)
[2023-01-22] MEDS: DULOXETINE HCL 30MG DR CAPSULE PO SCH (09:54)
[2023-01-22] MEDS: LEVETIRACETAM 500MG PREMIX 100 ML IV SCH ×2 (09:55→21:18)
[2023-01-22] MEDS: PRIMIDONE 50MG TABLET PO SCH ×2 (09:55→21:19)
[2023-01-22] MEDS: SODIUM CHL 0.45% + KCL 20MEQ/L 1,000 ML IV SCH (10:06)
[2023-01-22] MEDS ORDERED: DEXTROSE 50% WATER 50ML SYRINGE IV NR (16:22)
[2023-01-22] MEDS ORDERED: PROPOFOL 200MG/20ML VIAL IV ONE (17:41)
[2023-01-22] MEDS ORDERED: DEXAMETHASONE 4MG/ML 1ML VIAL ONE (17:41)
[2023-01-22] MEDS ORDERED: ONDANSETRON HCL 4MG/2ML INJ ONE (17:41)
[2023-01-22 20:00] VITALS: BP 146/62; PULSE 76; RESP 18; TEMP 97.8
[2023-01-22] MEDS: DEXT 5%/0.9% NACL 1,000 ML IV SCH (20:07)
[2023-01-23] VITALS: BP 122/45; PULSE 85; RESP 16; TEMP 99.1
[2023-01-23 04:00] VITALS: BP 132/55; PULSE 80; RESP 18; TEMP 97.5
[2023-01-23] MEDS: DEXT 5%/0.9% NACL 1,000 ML IV SCH ×3 (05:05→23:19)
[2023-01-23] MEDS: OXYBUTYNIN CHLORIDE 5MG TABLET PO SCH ×3 (06:14→21:12)
[2023-01-23] MEDS: LEVETIRACETAM 500MG PREMIX 100 ML IV SCH ×2 (09:09→21:12)
[2023-01-23] MEDS: DULOXETINE HCL 30MG DR CAPSULE PO SCH (09:09)
[2023-01-23] MEDS: PRIMIDONE 50MG TABLET PO SCH ×2 (09:10→21:12)
[2023-01-23 12:00] VITALS: BP 137/72; PULSE 86; RESP 28; TEMP 97.6
[2023-01-23 16:00] VITALS: BP 157/62; PULSE 78; RESP 16; TEMP 97.9
[2023-01-23 20:00] VITALS: BP 138/61; PULSE 77; RESP 24; TEMP 99.3
[2023-01-23] MEDS: OMEPRAZOLE 20MG CAPSULE EXTENDED RELEASE PO SCH (22:00)
[2023-01-24] VITALS: BP 156/75; PULSE 78; RESP 16; TEMP 98.5
[2023-01-24 04:00] VITALS: BP 124/76; PULSE 83; RESP 16; TEMP 98.2
[2023-01-24] MEDS: SUCRALFATE 1 G/10 ML UDC PO SCH ×4 (06:15→22:06)
[2023-01-24] MEDS: OMEPRAZOLE 20MG CAPSULE EXTENDED RELEASE PO SCH ×2 (06:15→22:06)
[2023-01-24] MEDS: OXYBUTYNIN CHLORIDE 5MG TABLET PO SCH ×3 (06:15→22:06)
[2023-01-24 08:00] VITALS: BP 121/73; PULSE 82; RESP 18; TEMP 98.1
[2023-01-24] MEDS: LEVETIRACETAM 250MG TABLET PO SCH ×2 (08:45→15:15)
[2023-01-24] MEDS: PRIMIDONE 50MG TABLET PO SCH ×2 (08:45→22:06)
[2023-01-24] MEDS: DULOXETINE HCL 30MG DR CAPSULE PO SCH (08:45)
[2023-01-24 16:00] VITALS: BP 113/60; PULSE 82; RESP 18; TEMP 97.8
[2023-01-24 20:00] VITALS: BP 125/44; PULSE 84; RESP 20; TEMP 97.5
[2023-01-24] MEDS: DEXT 5%/0.9% NACL 1,000 ML IV SCH (22:08)
[2023-01-25] VITALS (7 sets, daily range): BP systolic 110–160; BP diastolic 54–83; PULSE 70–93; RESP 20–25; TEMP 97.9–100.2
[2023-01-25] MEDS: OMEPRAZOLE 20MG CAPSULE EXTENDED RELEASE PO SCH ×2 (06:07→21:32)
[2023-01-25] MEDS: OXYBUTYNIN CHLORIDE 5MG TABLET PO SCH ×3 (06:07→21:32)
[2023-01-25] MEDS: SUCRALFATE 1 G/10 ML UDC PO SCH ×3 (06:07→21:32)
[2023-01-25] MEDS: LEVETIRACETAM 250MG TABLET PO SCH (09:00)
[2023-01-25] MEDS: PRIMIDONE 50MG TABLET PO SCH (09:00)
[2023-01-25] MEDS: DULOXETINE HCL 30MG DR CAPSULE PO SCH (09:00)
[2023-01-25] MEDS: MEGESTROL ACETATE 400 MG/10 ML UDC PO SCH (09:00)
[2023-01-25] MEDS ORDERED: PRIMIDONE 50MG TABLET PO NR (11:30)
[2023-01-25] MEDS: ACETAMINOPHEN 325MG TABLET PO PRN (17:08)
[2023-01-25] MEDS: PRIMIDONE 50MG TABLET PO NR (17:09)
[2023-01-25] MEDS: GUAIFENESIN-DM 200MG-20MG/10ML UDC PO PRN (18:09)
[2023-01-25] MEDS: LEVETIRACETAM 500MG TABLET PO SCH (21:32)
[2023-01-26] VITALS: BP 101/41; PULSE 118; RESP 15; TEMP 98.6
[2023-01-26] MEDS: DEXT 5%/0.9% NACL 1,000 ML IV SCH ×2 (00:01→13:25)
[2023-01-26 04:00] VITALS: BP 147/68; PULSE 82; RESP 21; TEMP 98.7
[2023-01-26] MEDS: OMEPRAZOLE 20MG CAPSULE EXTENDED RELEASE PO SCH (06:29)
[2023-01-26] MEDS: SUCRALFATE 1 G/10 ML UDC PO SCH ×2 (06:29→13:21)
[2023-01-26] MEDS: OXYBUTYNIN CHLORIDE 5MG TABLET PO SCH ×2 (06:29→13:21)
[2023-01-26] MEDS: GUAIFENESIN-DM 200MG-20MG/10ML UDC PO PRN (06:29)
[2023-01-26 08:00] VITALS: PULSE 84; RESP 18; TEMP 98.8
[2023-01-26] MEDS: LEVETIRACETAM 500MG TABLET PO SCH (08:54)
[2023-01-26] MEDS: MEGESTROL ACETATE 400 MG/10 ML UDC PO SCH (08:54)
[2023-01-26 12:00] VITALS: BP 112/66; PULSE 80; RESP 18; TEMP 98.6
[2023-01-26] MEDS: PRIMIDONE 50MG TABLET PO NR (14:37)
[2023-01-26 16:00] VITALS: BP 128/62; PULSE 84; RESP 18; TEMP 97.8
[2023-01-26 17:38] VITALS: BP 149/66; PULSE 86; TEMP 98.1; O2SAT 95
[2023-01-26 18:27] LABS: FOLIC ACID (FOLATE) SERUM 13.73 ng/mL (>5.38); T4 FREE 1.19 ng/dL (0.89-1.76); THYROID STIMULATING HORMONE 2.33 uIU/mL (0.55-4.78); VITAMIN B12 SERUM 1116 pg/mL (211-911)
== END 2023-01-26 19:52 | DRG 101 ==
LOC: ER 14:07 → MICUSO 18:23 → EDBEDREQ 18:37 → EDBEDREQTM 18:37 → EDBEDREQSVC 18:46 → 5EST 01-20 16:12 → 3WST 01-22 04:15
PROVIDERS: ADMIT Internal Medicine; ATTEND Internal Medicine
PROC: 0DB98ZX Excision of Duodenum, Via Natural or Artificial Opening Endoscopic, Diagnostic (ICD-10-PCS; principal; 2023-01-21)
PROC: 0DB78ZX Excision of Stomach, Pylorus, Via Natural or Artificial Opening Endoscopic, Diagnostic (ICD-10-PCS; 2023-01-21)
DX: G40.909 Epilepsy, unspecified, not intractable, without status epilepticus (principal); K29.70 Gastritis, unspecified, without bleeding; K29.80 Duodenitis without bleeding; E83.42 Hypomagnesemia; E78.00 Pure hypercholesterolemia, unspecified; E87.6 Hypokalemia; I10 Essential (primary) hypertension; E11.9 Type 2 diabetes mellitus without complications; K22.2 Esophageal obstruction; K44.9 Diaphragmatic hernia without obstruction or gangrene; M06.9 Rheumatoid arthritis, unspecified; Z88.6 Allergy status to analgesic agent; Z88.3 Allergy status to other anti-infective agents; Z88.2 Allergy status to sulfonamides; Z88.0 Allergy status to penicillin; Z79.899 Other long term (current) drug therapy; Z79.84 Long term (current) use of oral hypoglycemic drugs; Z79.02 Long term (current) use of antithrombotics/antiplatelets; Z86.73 Personal history of transient ischemic attack (TIA), and cerebral infarction without residual deficits; J44.89 Other specified chronic obstructive pulmonary disease
CPT/HCPCS: 36415; 70496; 70498; 71045; 74176; 80048; 80053; 80076; 80305; 80320; 81003; 82140; 82550; 82607; 82746; 82962; 83036; 83605; 83735; 84100; 84145; 84439; 84443; 84481; 85025; 85044; 87426; 92610; 93005; 97166; 97530; 99291; C1893; C9803; J0360; J1100; J1953; J2060; J2185; J2270; J2405; J2704; J3370; J3475; J3480; J3490; J7042; J7050; Q9967; G0480

== ENCOUNTER 2023-01-29 10:49 | Emergency (ER) | payer MEDICARE, MEDICAID ==
[~2023-01-29] VITALS: Ht 162.6 cm; Wt 50.0 kg
[2023-01-29 10:57] VITALS: BP 134/70; PULSE 107; RESP 16; TEMP 100.2; O2SAT 94
[2023-01-29 11:57] LABS: HEMATOCRIT 36.2 % (36.0-48.0); HEMOGLOBIN 12.3 g/dL (12.0-16.0); MEAN CORPUSCULAR HEMOGLOBIN 31.1 pg (28.0-32.0); MEAN CORPUSCULAR HGB CONC 34.1 g/dL (31.0-37.0); MEAN CORPUSCULAR VOLUME 91.1 fL (81.0-99.0); PLATELET 317 x1000/uL (130-400); RED BLOOD CELL COUNT 3.97 mill/uL (4.2-5.4); RED CELL DISTRIBUTION WIDTH 13.7 % (11.6-14.6); WHITE BLOOD COUNT 11.1 x1000/uL (4.5-11.0)
[2023-01-29 12:11] LABS: ALANINE AMINOTRANSFERASE 11 IU/L (10-49); ASPARTATE AMINOTRANSFERASE 19 IU/L (<34); BILIRUBIN TOTAL 0.5 mg/dL (0.1-1.0); CALCIUM 9.1 mg/dL (8.7-10.4); CARBON DIOXIDE 27 mEq/L (21-32); CHLORIDE 95 mEq/L (98-107); CHOLESTEROL 150 mg/dL (<200); CREATININE 0.6 mg/dL (0.6-1.0); GLUCOSE 105 mg/dL (70-105); HDL CHOLESTEROL 69 mg/dL (>65); LDL CHOLESTEROL 58 mg/dL (5-100); PHOSPHORUS 3.9 mg/dL (2.5-4.9); POTASSIUM 3.8 mEq/L (3.5-5.1); PROTEIN TOTAL 6.6 g/dL (6.0-8.3); SODIUM 129 mEq/L (136-145); TRIGLYCERIDE 87 mg/dL (0-150); UREA NITROGEN BLOOD 14 mg/dL (9-23)
== END 2023-01-29 16:27 ==
LOC: ER 10:49 → CANBEDREQ 14:01 → ER 16:27
DX: R56.9 Unspecified convulsions (principal); J45.909 Unspecified asthma, uncomplicated; E11.9 Type 2 diabetes mellitus without complications; I10 Essential (primary) hypertension; Z88.0 Allergy status to penicillin; Z88.2 Allergy status to sulfonamides; Z88.8 Allergy status to other drugs, medicaments and biological substances; Z79.899 Other long term (current) drug therapy; Z86.73 Personal history of transient ischemic attack (TIA), and cerebral infarction without residual deficits; Z98.890 Other specified postprocedural states
CPT/HCPCS: 36415; 71045; 80053; 80061; 83735; 84100; 85027; 99284

== ENCOUNTER 2023-06-08 09:29 | Emergency (ER) | payer MEDICARE, MEDICAID ==
[~2023-06-08] VITALS: Ht 157.5 cm; Wt 40.0 kg
[2023-06-08 09:33] VITALS: O2SAT 100
[2023-06-08 11:02] LABS: EOSINOPHILS % 10.3 % (0.0-5.0); HEMATOCRIT. 35.3 % (36.0-48.0); HEMOGLOBIN. 11.8 g/dL (12.0-16.0); LYMPHOCYTES % 43.7 % (20.0-50.0); MEAN CORPUSCULAR HEMOGLOBIN 27.9 pg (28.0-32.0); MEAN CORPUSCULAR HGB CONC 33.4 g/dL (31.0-37.0); MEAN CORPUSCULAR VOLUME 83.5 fL (81.0-99.0); MEAN PLATELET VOLUME 7.2 fl (7.4-10.4); MONOCYTES % 7.8 % (2.0-8.0); NEUTROPHILS % 37.2 % (40.0-76.0); PLATELET 419 x1000/uL (130-400); RED BLOOD CELL COUNT 4.23 mill/uL (4.2-5.4); WHITE BLOOD COUNT 8.5 x1000/uL (4.5-11.0)
[2023-06-08 11:16] LABS: ALANINE AMINOTRANSFERASE 9 IU/L (10-49); ALBUMIN 3.9 g/dL (3.2-4.8); ASPARTATE AMINOTRANSFERASE 20 IU/L (<34); BILIRUBIN TOTAL 0.2 mg/dL (0.1-1.0); CARBON DIOXIDE 30 mEq/L (21-32); CHLORIDE 104 mEq/L (98-107); CREATININE 0.6 mg/dL (0.6-1.0); GLUCOSE 93 mg/dL (70-105); POTASSIUM 3.6 mEq/L (3.5-5.1); PROTEIN TOTAL 6.9 g/dL (6.0-8.3); SODIUM 140 mEq/L (136-145); UREA NITROGEN BLOOD 11 mg/dL (9-23)
[2023-06-08 11:17] LABS: TROPONIN I HIGH SENSITIVITY < 4 ng/L (3.0-34)
[2023-06-08] MEDS ORDERED: P50 MT (11:55)
[2023-06-08] MEDS: PREDNISONE 20MG TABLET PO ONE (12:37)
[2023-06-08 17:28] VITALS: BP 103/39; PULSE 88; RESP 16; TEMP 98.1
== END 2023-06-08 17:31 | disposition home or self-care (01) ==
LOC: ER 09:58
DX: J44.9 Chronic obstructive pulmonary disease, unspecified (principal); I10 Essential (primary) hypertension; J45.909 Unspecified asthma, uncomplicated; E11.9 Type 2 diabetes mellitus without complications; Z88.0 Allergy status to penicillin; Z88.2 Allergy status to sulfonamides; Z79.899 Other long term (current) drug therapy; Z86.73 Personal history of transient ischemic attack (TIA), and cerebral infarction without residual deficits; Z98.890 Other specified postprocedural states
CPT/HCPCS: 99285; 71045; 80053; 83880; 85025; 84484; 36415; 93005; J7512

== ENCOUNTER 2023-08-14 04:44 | Emergency (ER) | payer OTHER, MEDICAID ==
[~2023-08-14] VITALS: Ht 162.6 cm; Wt 50.0 kg
[~2023-08-14 04:44] MED LIST changes: +P50 MT
[2023-08-14 05:00] VITALS: O2SAT 99
[2023-08-14 05:59] LABS: BASOPHILS % 1.2 % (0.0-2.0); EOSINOPHILS % 7.5 % (0.0-5.0); HEMATOCRIT. 37.2 % (36.0-48.0); HEMOGLOBIN. 12.6 g/dL (12.0-16.0); LYMPHOCYTES % 50.2 % (20.0-50.0); MEAN CORPUSCULAR HEMOGLOBIN 29.3 pg (28.0-32.0); MEAN CORPUSCULAR HGB CONC 33.7 g/dL (31.0-37.0); MEAN CORPUSCULAR VOLUME 86.8 fL (81.0-99.0); MEAN PLATELET VOLUME 7.9 fl (7.4-10.4); MONOCYTES % 9.6 % (2.0-8.0); NEUTROPHILS % 31.5 % (40.0-76.0); PLATELET 234 x1000/uL (130-400); RED BLOOD CELL COUNT 4.29 mill/uL (4.2-5.4); RED CELL DISTRIBUTION WIDTH 17.5 % (11.6-14.6)
[2023-08-14 06:03] LABS: CHLORIDE 106 mEq/L (98-107); POTASSIUM 3.6 mEq/L (3.5-5.1); SODIUM 141 mEq/L (136-145)
[2023-08-14 06:04] LABS: CALCIUM 9.4 mg/dL (8.7-10.4); CARBON DIOXIDE 28 mEq/L (21-32)
[2023-08-14 06:09] LABS: CREATININE 0.6 mg/dL (0.6-1.0); GLUCOSE 83 mg/dL (70-105); UREA NITROGEN BLOOD 15 mg/dL (9-23)
[2023-08-14] MEDS: LEVETIRACETAM 500MG PREMIX 100 ML IV ONE (06:09)
[2023-08-14 06:11] LABS: PHOSPHORUS 4.1 mg/dL (2.5-4.9)
[2023-08-14] MEDS: LORAZEPAM 2MG/ML INJ IV ONE (07:53)
[2023-08-14 09:17] VITALS: BP 125/59; PULSE 87; RESP 18; TEMP 98.4
== END 2023-08-14 09:25 | disposition home or self-care (01) ==
LOC: ER 04:44
DX: R56.9 Unspecified convulsions (principal); I10 Essential (primary) hypertension; Z88.0 Allergy status to penicillin; Z88.2 Allergy status to sulfonamides; Z79.899 Other long term (current) drug therapy; Z86.73 Personal history of transient ischemic attack (TIA), and cerebral infarction without residual deficits
CPT/HCPCS: 99285; 96365; 96375; 80048; 83735; 84100; 85025; 36415; J1953; J2060

== ENCOUNTER 2024-01-01 10:52 | Emergency (ER) | payer OTHER ==
[~2024-01-01] VITALS: Ht 162.6 cm; Wt 50.0 kg
[2024-01-01 10:58] VITALS: O2SAT 99
[2024-01-01 12:41] LABS: BASOPHILS % 0.9 % (0.0-2.0); EOSINOPHILS % 1.8 % (0.0-5.0); HEMATOCRIT. 40.3 % (36.0-48.0); HEMOGLOBIN. 13.1 g/dL (12.0-16.0); LYMPHOCYTES % 39.3 % (20.0-50.0); MEAN CORPUSCULAR HEMOGLOBIN 30.3 pg (28.0-32.0); MEAN CORPUSCULAR HGB CONC 32.5 g/dL (31.0-37.0); MEAN CORPUSCULAR VOLUME 93.3 fL (81.0-99.0); MEAN PLATELET VOLUME 7.7 fl (7.4-10.4); MONOCYTES % 10.2 % (2.0-8.0); NEUTROPHILS % 47.8 % (40.0-76.0); PLATELET 243 x1000/uL (130-400); RED BLOOD CELL COUNT 4.32 mill/uL (4.2-5.4); RED CELL DISTRIBUTION WIDTH 13.7 % (11.6-14.6)
[2024-01-01 12:51] LABS: CHLORIDE 101 mEq/L (98-107); SODIUM 136 mEq/L (136-145)
[2024-01-01 12:52] LABS: CALCIUM 9.5 mg/dL (8.7-10.4); CARBON DIOXIDE 28 mEq/L (21-32)
[2024-01-01 12:57] LABS: CREATININE 0.8 mg/dL (0.6-1.0); GLUCOSE 122 mg/dL (70-105); UREA NITROGEN BLOOD 16 mg/dL (9-23)
[2024-01-01 13:11] LABS: ETHANOL BLOOD < 10 mg/dL (<10)
[2024-01-01 13:30] VITALS: BP 115/56; PULSE 77; RESP 15; TEMP 36.66960; O2SAT 98
[2024-01-01] MEDS ORDERED: LEVETIRACETAM 1000MG PREMIX 100 ML IV SCH (21:00)
== END 2024-01-01 13:45 | disposition home or self-care (01) ==
LOC: ER 10:52
DX: R56.9 Unspecified convulsions (principal); I10 Essential (primary) hypertension; Z88.2 Allergy status to sulfonamides; Z88.0 Allergy status to penicillin; Z88.6 Allergy status to analgesic agent; Z88.1 Allergy status to other antibiotic agents; Z79.899 Other long term (current) drug therapy; Z86.73 Personal history of transient ischemic attack (TIA), and cerebral infarction without residual deficits
CPT/HCPCS: 36415; 80048; 80320; 85025; 99284; G0480